=== PATIENT | male | born 1955 | race Caucasian/White ===

== ENCOUNTER → 2017-08-23 | Outpatient (CLI) | payer OTHER ==
[2016-12-01 12:18] VITALS: BMI 40.2
[~2017-08-23] MED LIST: ALB6.7R INH; ALBU8.5H12 IH; BUPR-126 PO; CEPH500C24 PO; DOCU-416 PO; DOXY-179 PO; FENT-15 TD; GABA-547 PO; IBUP600T22 PO; LOR5/325 PO; MUPI15CR2; NADO40TA19 PO; NAPR220C12 PO; OMEP-125 PO; ONDA-2 PO; ONDA4TAB97 PO; OXYC-865 PO; PANT40TA65 PO; PNEI IJ; TRAM-420 PO; VANC1VIA14 IV
[2017-08-23 12:51] LABS: PLATELET COUNT, AUTOMATED 65 K/uL (150-450)
[2017-08-23 13:09] LABS: INR 1.5
[2017-08-23 13:30] LABS: LDL CHOLESTEROL 41 mg/dl
== END ==
LOC: LAB 12:15
PROVIDERS: ATTEND Emergency Medicine
DX: K74.69 Other cirrhosis of liver (principal)
CPT/HCPCS: 36415; 82040; 82105; 82247; 82310; 82374; 82435; 82465; 82565; 82947; 83718; 84075; 84132; 84153; 84155; 84295; 84443; 84450; 84460; 84478; 84520; 85025; 85610; 85730; 86140

== ENCOUNTER → 2017-12-27 | Outpatient (CLI) | payer OTHER ==
[2016-12-01 12:18] VITALS: BMI 40.2
[~2017-12-27] MED LIST changes: +SULF-198 PO
[2017-12-27 11:20] LABS: PLATELET COUNT, AUTOMATED 54 K/uL (150-450)
--- NOTE | 2017-12-27 11:26 | RADIOLOGY IMAGING REPORT ---
FACILITY: [facility] [place] PATIENT NAME: Kamar Monsalve : 1955 MR: [id number] V: [id number] EXAM DATE: ORDERING PHYSICIAN: MARGIE DODGE TECHNOLOGIST: Location: [facility] Patient: Kamar Monsalve : 1955 Visit/Account:[id number] Date of Sevice: 12/27/2017 VENOUS DOPP LOW RIGHT EXTREMIT HISTORY: edema RLE ADDITIONAL HISTORY: None. COMPARISON: Comparison ultrasound 11/29/2016 which was negative for DVT FINDINGS: Grayscale, duplex and color Doppler interrogation of the right lower extremity deep veins from common femoral vein to proximal calf was completed. Common femoral vein - Negative. Femoral vein - Negative. Deep femoral vein - Negative. Popliteal vein - Negative. Visualized deep calf veins - Negative. Popliteal fossa: Negative. Greater saphenous vein in the proximal thigh: Negative. Soft tissues-unremarkable. No sonographic evidence of edema. IMPRESSION: Normal study. No evidence of DVT in the right leg. Results were called to MARGIE DODGE at 12/27/2017 11:19 AM. Report Dictated By: Adarsh Petersen MD at 12/27/2017 11:19 AM Report E-Signed By: Adrash Petersen MD at 12/27/2017 11:22 AM WSN:[id number]
[2017-12-27 12:12] LABS: INR 1.51
== END ==
LOC: LAB 10:01
PROVIDERS: ATTEND Internal Medicine
DX: K74.60 Unspecified cirrhosis of liver (principal); R60.9 Edema, unspecified; D61.818 Other pancytopenia; L08.9 Local infection of the skin and subcutaneous tissue, unspecified
CPT/HCPCS: 36415; 82040; 82247; 82310; 82374; 82435; 82565; 82947; 84075; 84132; 84155; 84295; 84450; 84460; 84520; 85025; 85610

== ENCOUNTER → 2018-01-30 | Outpatient (CLI) | payer OTHER ==
[2016-12-01 12:18] VITALS: BMI 40.2
[2018-01-30 16:01] LABS: PLATELET COUNT, AUTOMATED 59 K/uL (150-450)
--- NOTE | 2018-01-30 16:01 | RADIOLOGY IMAGING REPORT ---
FACILITY: [facility] [place] PATIENT NAME: Kamar Monsalve : 1955 MR: [id number] V: [id number] EXAM DATE: ORDERING PHYSICIAN: MARGIE DODGE TECHNOLOGIST: Location: [facility] Patient: Kamar Monsalve : 1955 Visit/Account:[id number] Date of Sevice: 01/30/2018 Exam type: VENOUS DOPP LOW LEFT EXTREMITY History: Edema of left leg, portal hypertension Comparison: None. Findings: Left lower extremity veins were imaged including the left common femoral vein, greater saphenous vein , superficial femoral vein, popliteal vein, posterior tibial vein, peroneal vein and anterior tibial vein revealing no evidence of trauma thrombi. The veins were compressible and demonstrated augmentat ion. There is soft tissue edema seen in the left calf distally. Incidentally noted are fatty replac ed lymph nodes in the left groin largest measuring 4.4 x 1.3 x 1.9 cm IMPRESSION: 1. No sonographic evidence of DVT involving the left lower extremity veins Report Dictated By: Dorota Dorsey MD at 01/30/2018 3:53 PM Report E-Signed By: Dorota Dorsey MD at 01/30/2018 3:55 PM GLORIAN:KELLY
== END ==
LOC: RAD 14:08
PROVIDERS: ATTEND Internal Medicine
DX: D61.818 Other pancytopenia (principal); L03.116 Cellulitis of left lower limb; R60.0 Localized edema
CPT/HCPCS: 36415; 82040; 82247; 82310; 82374; 82435; 82565; 82947; 84075; 84132; 84155; 84295; 84443; 84450; 84460; 84520; 85025; 86140

== ENCOUNTER → 2018-03-13 | Outpatient (CLI) | payer OTHER ==
[2016-12-01 12:18] VITALS: BMI 40.2
[~2018-03-13] MED LIST changes: +OXYC5TAB38 PO; +SPIR50TA33 PO
[2018-03-13 12:12] LABS: PLATELET COUNT, AUTOMATED 79 K/uL (150-450)
== END ==
LOC: LAB 11:56
PROVIDERS: ATTEND Internal Medicine
DX: K74.60 Unspecified cirrhosis of liver (principal); R60.0 Localized edema; D61.818 Other pancytopenia
CPT/HCPCS: 36415; 82040; 82247; 82310; 82374; 82435; 82565; 82947; 84075; 84132; 84155; 84295; 84443; 84450; 84460; 84520; 85025

== ENCOUNTER 2018-04-29 22:51 | Inpatient (IN) | payer OTHER ==
[~2018-04-29] VITALS: Ht 193 cm; Wt 138.3 kg
[2018-04-29] MEDS ORDERED: ACETAMINOPHEN 325 MG TAB PO ONE (23:00)
[2018-04-29] MEDS ORDERED: PIPERACILLIN/TAZO*3.375GM VIAL 3.375 GM in NS(*) 0.9% 100 ML ADDVANT BAG 100 ML IVPB ONE (23:00)
[2018-04-29] MEDS ORDERED: NS 0.9% IV ONE (23:00)
[2018-04-29] MEDS ORDERED: IOPAMIDOL 76% 75 ML INFUS BTL 75 ML ONE (23:13)
[2018-04-29 23:14] LABS: PLATELET COUNT, AUTOMATED 54 K/uL (150-450)
[2018-04-29] MEDS ORDERED: VANCOMYCIN 1 GM ADDVIAL 1 GM in NS(*) 0.9% 250 ML ADDVAN BAG 250 ML IVPB ONE (23:20)
--- NOTE | 2018-04-29 23:21 | ER Report ---
History and Physical Time Seen By MD: 23:20 Hx. of Stated Complaint: PT CALLED IN SICK TODAY VIA REPORT; STATES THAT PATIENT HAS NOT BEEN "BEEN HIMSELF TODAY" ABOUT AN HOUR AND A HALF AGO PATIENT STARTED EXPERIENCING ALTERED LOC AND STATES NAUSA AND "FEELING HOT" HPI/ROS CHIEF COMPLAINT: Altered mental status, lethargy, fever HISTORY OF PRESENT ILLNESS: Patient is a 8-year-old male here with complaints of fever, lethargy, altered mental status for the past several hours. Patient's reports that he became increasingly more altered over the course of the past several hours and became hot to the touch. Patient has a history of right knee infection and several skin sores which are suspected to be infected with staph. Patient also complained of abdominal pain, cough. Patient was febrile at time of evaluation, confused with no clear focal neurological deficits or muscle weakness. Per the 's report, the patient had confused speech, had nonsensical thought process causing her to call EMS. Patient also has a history significant for liver cirrhosis, on nadolol. Of note, patient is on fentanyl p atch as well as tramadol. REVIEW OF SYSTEMS: Unable to obtain due to patient's mental status Allergies: Coded Allergies: horse dander (Verified Allergy, Unknown, 11/29/16) morphine (Unverified Allergy, Unknown, NAUSEA/VOMITING, 11/29/16) Home Meds Active Scripts Tramadol Hcl (TRAMADOL HCL) 50 Mg Tablet, 50 MG PO BID PRN for pain, #60 TAB 3 R efills Prov:MARGIE DODGE MD 04/08/18 Fentanyl 12 Mcg Patch (DURAGESIC 12 MCG PATCH) 1 Each Patch.td72, 1 EACH TD Q72H, #10 PATCH.72H on or after 06/08/2018 Prov:MARGIE DODGE MD 04/08/18 Eplerenone (EPLERENONE) 50 Mg Tablet, 50 MG PO DIRECTED, #60 TAB 3 Refills half tablet daily x 1 week 1 tablet daily x 1 week than 1 tablet bid x 1 week Prov:MARGIE DODGE MD 04/08/18 Gabapentin (GABAPENTIN) 100 Mg Capsule, 1-3 TAB PO BID PRN for rls, #60 CAPSULE 3 Refills Prov:MARGIE DODGE MD 04/08/18 Nadolol (NADOLOL) 40 Mg Tablet, 40 MG PO QDAY, #90 TAB 3 Refills Prov:MARGIE DODGE MD 09/24/17 Mupirocin Abhishek 2% Cream (MUPIROCIN 2% CREAM) 15 Gm Cream..g., 0 NA BID, #15 GM Prov:MARGIE DODGE MD 05/27/17 Pantoprazole Sodium (PANTOPRAZOLE SODIUM) 40 Mg Tablet.dr, 40 MG PO QDAY, #30 TAB.SR 3 Refills Prov:MARGIE DODGE MD 03/06/17 Ondansetron Hcl (ONDANSETRON HCL) 4 Mg Tablet, 4 MG PO TID PRN for NAUSEA/VOMITING, #30 TAB 1 Refill Prov:MARGIE DODGE MD 01/15/17 Reported Medications Albuterol Sulfate (PROVENTIL HFA) Unknown Strength Inh, 1-2 PUFF INH PRN, INH 05/28/16 Reviewed Nurses Notes: Yes Old Medical Records Reviewed: Yes Hx Smoking: No Smoking Status: Never Smoker Hx Substance Use Disorder: No Hx Alcohol Use: No Constitutional Vital Sign - Last 24 Hours 04/29/18 04/29/18 04/29/18 04/29/18 22:52 22:58 23:00 23:21 Temp 102.3 Pulse 75 72 Resp 22 34 B/P (MAP) 120/52 (74) 120/52 107/55 (72) Pulse Ox 93 92 O2 Delivery Room Air 04/29/18 04/29/18 04/30/18 04/30/18 23:30 23:51 00:13 00:21 Pulse ??? 76 Resp 24 B/P (MAP) 105/60 (75) 116/43 (67) Pulse Ox 95 04/30/18 04/30/18 04/30/18 04/30/18 00:30 00:35 01:00 01:02 Temp 102.4 Pulse 78 Resp 29 B/P (MAP) 115/54 (74) 106/57 (73) Pulse Ox 88 04/30/18 04/30/18 04/30/18 04/30/18 01:30 01:35 01:56 02:01 Pulse 75 72 73 Resp 22 18 15 B/P (MAP) 112/58 (76) Pulse Ox 98 97 97 04/30/18 04/30/18 02:30 02:31 Pulse 70 Resp 16 B/P (MAP) 95/53 (67) Pulse Ox 97 Intake and Output 04/29/18 04/29/18 04/30/18 15:00 23:00 07:00 Intake Total 1100 ml Balance 1100 ml Physical Exam General Appearance: The patient is alert, has no immediate need for airway protection and no signs of toxicity. Confused, altered mental status Eyes: Pupils equal and round no pallor or injection. ENT, Mouth: Mucous membranes are moist. Respiratory: There are no retractions, lungs are clear to auscultation. Cardiovascular: Regular rate and rhythm. Gastrointestinal: Abdomen is soft and non tender, no masses, bowel sounds normal. Neurological: Confused, altered, no focal neurological deficits or motor weakness or cranial nerve deficit Skin: Warm and dry, + lower extremity skin lesions. Musculoskeletal: Neck is supple non tender. Extremities: + RLE swelling, warm to the touch DIFFERENTIAL DIAGNOSIS: After history and physical exam differential diagnosis was considered for adult fever including but not limited to viral syndromes including influenza, urinary tract infection, pneumonia and sepsis, skin infection Medical Decision Making Data Points Result Diagram: 04/29/18203904/29/182039 Laboratory Hematology Test 04/29/18 20:40 04/30/18 00:48 04/30/18 01:36 04/30/18 01:40 Red Blood Count 4.39 M/uL (4.00-5.60) Mean Corpuscular Volume 95.9 fL (80.0-96.0) Mean Corpuscular Hemoglobin 33.3 pg (26.0-33.0) Mean Corpuscular Hemoglobin Concent 34.7 g/dL (32.0-36.0) Red Cell Distribution Width 14.9 % (11.5-14.5) Mean Platelet Volume 9.4 fL (7.2-11.1) Neutrophils (%) (Auto) 79.1 % (39.4-72.5) Lymphocytes (%) (Auto) 11.4 % (17.6-49.6) Monocytes (%) (Auto) 8.3 % (4.1-12.4) Eosinophils (%) (Auto) 1.1 % (0.4-6.7) Basophils (%) (Auto) 0.1 % (0.3-1.4) Nucleated RBC Relative Count (auto) 0.1 /100WBC Neutrophils # (Auto) 4.1 K/uL (2.0-7.4) Lymphocytes # (Auto) 0.6 K/uL (1.3-3.6) Monocytes # (Auto) 0.4 K/uL (0.3-1.0) Eosinophils # (Auto) 0.1 K/uL (0.0-0.5) Basophils # (Auto) 0.0 K/uL (0.0-0.1) Nucleated RBC Absolute Count (auto) 0.00 K/uL Peripheral Blood Smear Yes Y/N Prothrombin Time 17.9 seconds (12.0-14.4) Prothromb Time International Ratio 1.46 Activated Partial Thromboplast Time 40 seconds (23-35) Sodium Level 137 mmol/L (137-145) Potassium Level 4.0 mmol/L (3.5-5.0) Chloride Level 102 mmol/L (98-107) Carbon Dioxide Level 26 mmol/L (22-30) Blood Urea Nitrogen 13 mg/dl (9-21) Creatinine 1.00 mg/dl (0.66-1.25) Glomerular Filtration Rate Calc > 60.0 Random Glucose 101 mg/dl (75-110) Lactate 2.0 mmol/L (0.7-2.1) Calcium Level 8.9 mg/dl (8.4-10.2) Total Bilirubin 2.3 mg/dl (0.2-1.3) Aspartate Amino Transf (AST/SGOT) 55 U/L (0-35) Alanine Aminotransferase (ALT/SGPT) 40 U/L (0-56) Alkaline Phosphatase 56 U/L (0-126) Total Protein 7.8 g/dl (6.3-8.2) Albumin 3.6 g/dl (3.5-5.0) Urine Color Yellow Urine Clarity Clear Urine pH 8.0 pH (4.8-9.5) Urine Specific [place] 1.051 Urine Protein Negative mg/dL (NEGATIVE) Urine Glucose (UA) Negative mg/dL (NEGATIVE) Urine Ketones Negative mg/dL (NEGATIVE) Urine Blood Negative (NEGATIVE) Urine Nitrite Negative (NEGATIVE) Urine Bilirubin Negative (NEGATIVE) Urine Urobilinogen 2.0 mg/dL (0.2-1.9) Urine Leukocyte Esterase Negative (NEGATIVE) Urine RBC <1 /HPF (0-2/HPF) Urine WBC None /HPF (0-5/HPF) Urine Squamous Epithelial Cells Few /LPF (NONE-FEW) Urine Bacteria Negative /HPF (NONE-FEW) Urine Mucus None /HPF (NONE-FEW) Ammonia 36 UMOL/L (9-33) Serum Alcohol < 10 mg/dl Chemistry Test 04/29/18 20:40 04/30/18 00:48 04/30/18 01:36 04/30/18 01:40 White Blood Count 5.1 k/uL (4.5-11.0) Red Blood Count 4.39 M/uL (4.00-5.60) Hemoglobin 14.6 g/dL (14.0-18.0) Hematocrit 42.1 % (42.0-52.0) Mean Corpuscular Volume 95.9 fL (80.0-96.0) Mean Corpuscular Hemoglobin 33.3 pg (26.0-33.0) Mean Corpuscular Hemoglobin Concent 34.7 g/dL (32.0-36.0) Red Cell Distribution Width 14.9 % (11.5-14.5) Platelet Count 54 K/uL (150-450) Mean Platelet Volume 9.4 fL (7.2-11.1) Neutrophils (%) (Auto) 79.1 % (39.4-72.5) Lymphocytes (%) (Auto) 11.4 % (17.6-49.6) Monocytes (%) (Auto) 8.3 % (4.1-12.4) Eosinophils (%) (Auto) 1.1 % (0.4-6.7) Basophils (%) (Auto) 0.1 % (0.3-1.4) Nucleated RBC Relative Count (auto) 0.1 /100WBC Neutrophils # (Auto) 4.1 K/uL (2.0-7.4) Lymphocytes # (Auto) 0.6 K/uL (1.3-3.6) Monocytes # (Auto) 0.4 K/uL (0.3-1.0) Eosinophils # (Auto) 0.1 K/uL (0.0-0.5) Basophils # (Auto) 0.0 K/uL (0.0-0.1) Nucleated RBC Absolute Count (auto) 0.00 K/uL Peripheral Blood Smear Yes Y/N Prothrombin Time 17.9 seconds (12.0-14.4) Prothromb Time International Ratio 1.46 Activated Partial Thromboplast Time 40 seconds (23-35) Glomerular Filtration Rate Calc > 60.0 Lactate 2.0 mmol/L (0.7-2.1) Calcium Level 8.9 mg/dl (8.4-10.2) Total Bilirubin 2.3 mg/dl (0.2-1.3) Aspartate Amino Transf (AST/SGOT) 55 U/L (0-35) Alanine Aminotransferase (ALT/SGPT) 40 U/L (0-56) Alkaline Phosphatase 56 U/L (0-126) Total Protein 7.8 g/dl (6.3-8.2) Albumin 3.6 g/dl (3.5-5.0) Urine Color Yellow Urine Clarity Clear Urine pH 8.0 pH (4.8-9.5) Urine Specific [place] 1.051 Urine Protein Negative mg/dL (NEGATIVE) Urine Glucose (UA) Negative mg/dL (NEGATIVE) Urine Ketones Negative mg/dL (NEGATIVE) Urine Blood Negative (NEGATIVE) Urine Nitrite Negative (NEGATIVE) Urine Bilirubin Negative (NEGATIVE) Urine Urobilinogen 2.0 mg/dL (0.2-1.9) Urine Leukocyte Esterase Negative (NEGATIVE) Urine RBC <1 /HPF (0-2/HPF) Urine WBC None /HPF (0-5/HPF) Urine Squamous Epithelial Cells Few /LPF (NONE-FEW) Urine Bacteria Negative /HPF (NONE-FEW) Urine Mucus None /HPF (NONE-FEW) Ammonia 36 UMOL/L (9-33) Serum Alcohol < 10 mg/dl Coagulation Test 04/29/18 20:40 Prothrombin Time 17.9 seconds Prothromb Time International Ratio 1.46 Activated Partial Thromboplast Time 40 seconds Toxicology Test 04/30/18 01:40 Serum Alcohol < 10 mg/dl Urinalysis Test 04/30/18 00:48 Urine Color Yellow Urine Clarity Clear Urine pH 8.0 pH (4.8-9.5) Urine Specific [place] 1.051 Urine Protein Negative mg/dL (NEGATIVE) Urine Glucose (UA) Negative mg/dL (NEGATIVE) Urine Ketones Negative mg/dL (NEGATIVE) Urine Blood Negative (NEGATIVE) Urine Nitrite Negative (NEGATIVE) Urine Bilirubin Negative (NEGATIVE) Urine Urobilinogen 2.0 mg/dL (0.2-1.9) Urine Leukocyte Esterase Negative (NEGATIVE) Urine RBC <1 /HPF (0-2/HPF) Urine WBC None /HPF (0-5/HPF) Urine Squamous Epithelial Cells Few /LPF (NONE-FEW) Urine Bacteria Negative /HPF (NONE-FEW) Urine Mucus None /HPF (NONE-FEW) EKG/Imaging Monitor Interpretation: Normal Sinus Rhythm Imaging COMPUTED TOMOGRAPHY ABDOMEN AND PELVIS WITH INTRAVENOUS CONTRAST DATE OF EXAM: 04/29/2018 10:56 PM INDICATION: Altered mental status, sepsis. History of cirrhosis. COMPARISON: CT abdomen 03/14/2017. TECHNIQUE: Contrast enhanced abdomen and pelvis CT performed during the injection of 75 ml of Isovue 370. Sagittal and coronal reconstructions were performed. One of the following dose optimization techniques was utilized in the performance of this exam: Automated exposure control; adjustment of the mA and/or kV according to the patient's size; or use of an iterative reconstruction technique. Specific details can be referenced in the facility's radiology CT exam operational policy. FINDINGS: Examination limited by respiratory motion artifact and artifact from the patient's arms. Lung bases: Minimal atelectasis. Liver and hepatic vasculature: Hypertrophy of the caudate lobe consistent with cirrhosis as previously described. Prominent venous collaterals in the upper abdomen. No well-demonstrated focal lesion or acute abnormality. Gallbladder and bile ducts: Gallbladder is partially distended and 1 suboptimally evaluated due to motion artifact. Spleen: At least moderate splenomegaly similar to prior. Pancreas: Nonfocal. Adrenals: Normal. Kidneys, ureters and bladder: 2 exophytic cysts at the superior pole of the right kidney. Probable cyst at the inferior pole of the left kidney as well. No acute abnormality or suspicious lesion. Retroperitoneum and aorta: Normal caliber aorta. No retroperitoneal adenopathy. GI tract, mesentery and peritoneum: No evidence of obstruction. No pneumatosis or pneumoperitoneum. Moderate to large amount of stool in the colon. Mild mesenteric edema may be related to portal hypertension. No significant ascites. Normal appendix. An umbilical hernia contains fat and a small loop of small bowel with no evidence of complication. Additional supraumbilical hernia contains omental fat. Prostate and seminal vesicles: Normal. Bones and soft tissues: There are enlarged right inguinal lymph nodes. An example node on image 180 series 2 measures 3.3 x 2.1 cm. No suspicious bone lesion. Marked bilateral gynecomastia. Umbilical and supraumbilical hernias as above. IMPRESSION: Examination limited by motion artifact. P CHEST 04/29/2018 10:56 PM. INDICATION: sepsis COMPARISON: None. FINDINGS: Lungs are well-expanded. There is no consolidation. No pleural effusion or pneumothorax. Heart size is likely normal. IMPRESSION: No acute abnormality. 1. Cirrhotic liver with evidence of portal hypertension including upper abdominal venous collaterals, splenomegaly, and mild mesenteric edema. No s ignificant volume of ascites. 2. Moderate to large amount of stool in the colon may indicate constipation. 3. Right inguinal adenopathy. Correlate with exam and any evidence of right lower extremity inflammation or infection. These would likely be amenable to percutaneous biopsy if there is any suspicion of malignancy. 4. Additional nonacute findings as described. CT Head without contrast Indication: Altered mental status. Comparison: None available. Technique: Axial CT images were obtained through the brain from the skull base to the vertex without administration of IV contrast. One of the following dose optimization techniques was utilized in the performance of this exam: Automated exposure control; adjustment of the mA and/or kV according to the patient's size; or use of an iterative reconstruction technique. Specific details can be referenced in the facility's radiology CT exam operational policy. Findings: No midline shift. No acute intracranial hemorrhage or acute territorial infarction. Region of CSF attenuation in the anterior inferior aspect of the left middle cranial fossa on the left measures 5.2 x 2.3 x 2.4 cm and likely represents an arachnoid cyst. Skull is nonacute. Globes and orbits are grossly normal. The visualized paranasal sinuses and mastoid air spaces are clear. IMPRESSION: 1. No acute intracranial abnormality. 2. Probable left middle cranial fossa arachnoid cyst, likely incidental. ED Course/Re-evaluation ED Course Patient is a 62-year-old male here with altered mental status, fever, right lower extremity swelling with warmth to the touch, reports of abdominal pain with no obvious peritoneal signs or tenderness on exam at time of arrival. Patient was noted to have a temperature 102.7F so a sepsis workup was initiated with blood cultures, 3 L fluid bolus, vancomycin and Zosyn administration. CT imaging of the head, abdomen and chest x-ray showed no acute findings aside for confirmation of liver cirrhosis, right inguinal lymphadenopathy consistent with infection of right lower extremity which are reportedly has been recurrent per patient's with staff. Ammonia was normal. Patient was also noted to have a fentanyl patch and is being treated with tramadol for analgesia. Patient's temperature normalized after treatment and Toradol administration patient's mental status began to improve. I discussed the patient with Dr. Mejía still with the hospitalist on-call who accepted the patient to his service. Patient remained stable throughout course in the emergency department. Decision to Disposition Date: Apr 30, 2018 Decision to Disposition Time: 00:03 Depart Departure Latest Vital Signs Vital Signs Date Time Temp Pulse Resp B/P (MAP) Pulse Ox O2 Delivery O2 Flow Rate FiO2 04/30/18 02:31 70 16 97 04/30/18 02:30 95/53 (67) 04/30/18 01:02 102.4 04/29/18 22:58 Room Air Impression: Primary Impression: Altered mental status Additional Impressions: Cirrhosis Skin infection Condition: Improved Disposition: Admitted from ER Referrals: MARGIE DODGE MD (PCP) Problem Qualifiers RUDOLPH CRUMP DO Apr 29, 2018 23:21
[2018-04-29 23:25] LABS: INR 1.46
[2018-04-30] VITALS (12 sets, daily range): BP systolic 87–117; BP diastolic 42–74; Ht 193 cm; Wt 138.3 kg
--- NOTE | 2018-04-30 00:31 | RADIOLOGY IMAGING REPORT ---
FACILITY: [facility] PATIENT NAME: Kamar Monsalve : 1955 MR: [id number] V: [id number] EXAM DATE: ORDERING PHYSICIAN: RUDOLPH CRUMP TECHNOLOGIST: Location: [facility] Patient: Kamar Monsalve : 1955 Visit/Account:[id number] Date of Sevice: 04/29/2018 AP CHEST 04/29/2018 10:56 PM. INDICATION: sepsis COMPARISON: None. FINDINGS: Lungs are well-expanded. There is no consolidation. No pleural effusion or pneumothorax. Heart size i s likely normal. IMPRESSION: No acute abnormality. Report Dictated By: Vinod Montiel MD at 04/30/2018 12:25 AM Report E-Signed By: Vinod Montiel MD at 04/30/2018 12:27 AM WSN:[id number]
--- NOTE | 2018-04-30 00:39 | RADIOLOGY IMAGING REPORT ---
FACILITY: [facility] [place] PATIENT NAME: Kamar Monsalve : 1955 MR: [id number] V: [id number] EXAM DATE: ORDERING PHYSICIAN: RUDOLPH CRUMP TECHNOLOGIST: Location: [facility] Patient: Kamar Monsalve : 1955 Visit/Account:[id number] Date of Sevice: 04/29/2018 CT Head without contrast Indication: Altered mental status. Comparison: None available. Technique: Axial CT images were obtained through the brain from the skull base to the vertex without administration of IV contrast. One of the following dose optimization techniques was utilized in th e performance of this exam: Automated exposure control; adjustment of the mA and/or kV according to t he patient's size; or use of an iterative reconstruction technique. Specific details can be referen benitez in the facility's radiology CT exam operational policy. Findings: No midline shift. No acute intracranial hemorrhage or acute territorial infarction. Region of CSF attenuation in the anterior inferior aspect of the left middle cranial fossa on the lef t measures 5.2 x 2.3 x 2.4 cm and likely represents an arachnoid cyst. Skull is nonacute. Globes and orbits are grossly normal. The visualized paranasal sinuses and mastoid air spaces are clear. IMPRESSION: 1. No acute intracranial abnormality. 2. Probable left middle cranial fossa arachnoid cyst, likely incidental. Report Dictated By: Vinod Montiel MD at 04/30/2018 12:27 AM Report E-Signed By: Vinod Montiel MD at 04/30/2018 12:35 AM WSN:[id number]
--- NOTE | 2018-04-30 00:54 | RADIOLOGY IMAGING REPORT ---
FACILITY: [facility] PATIENT NAME: Kamar Monsalve : 1955 MR: [id number] V: [id number] EXAM DATE: [id number] ORDERING PHYSICIAN: RUDOLPH CRUMP TECHNOLOGIST: Location: [facility] [place] Patient: Kamar Monsalve : 1955 Visit/Account:[id number] Date of Sevice: 04/29/2018 COMPUTED TOMOGRAPHY ABDOMEN AND PELVIS WITH INTRAVENOUS CONTRAST DATE OF EXAM: 04/29/2018 10:56 PM INDICATION: Altered mental status, sepsis. History of cirrhosis. COMPARISON: CT abdomen 03/14/2017. TECHNIQUE: Contrast enhanced abdomen and pelvis CT performed during the injection of 75 ml of Isovue 370. Sagittal and coronal reconstructions were performed. One of the following dose optimization te chniques was utilized in the performance of this exam: Automated exposure control; adjustment of the mA and/or kV according to the patient's size; or use of an iterative reconstruction technique. Spec [facility] details can be referenced in the facility's radiology CT exam operational policy. FINDINGS: Examination limited by respiratory motion artifact and artifact from the patient's arms. Lung bases: Minimal atelectasis. Liver and hepatic vasculature: Hypertrophy of the caudate lobe consistent with cirrhosis as previous ly described. Prominent venous collaterals in the upper abdomen. No well-demonstrated focal lesion or acute abnormality. Gallbladder and bile ducts: Gallbladder is partially distended and 1 suboptimally evaluated due to m otion artifact. Spleen: At least moderate splenomegaly similar to prior. Pancreas: Nonfocal. Adrenals: Normal. Kidneys, ureters and bladder: 2 exophytic cysts at the superior pole of the right kidney. Probable cyst at the inferior pole of the left kidney as well. No acute abnormality or suspicious lesion. Retroperitoneum and aorta: Normal caliber aorta. No retroperitoneal adenopathy. GI tract, mesentery and peritoneum: No evidence of obstruction. No pneumatosis or pneumoperitoneum. Moderate to large amount of stool in the colon. Mild mesenteric edema may be related to portal hyp ertension. No significant ascites. Normal appendix. An umbilical hernia contains fat and a small l oop of small bowel with no evidence of complication. Additional supraumbilical hernia contains oment al fat. Prostate and seminal vesicles: Normal. Bones and soft tissues: There are enlarged right inguinal lymph nodes. An example node on image 180 series 2 measures 3.3 x 2.1 cm. No suspicious bone lesion. Marked bilateral gynecomastia. Umbilic al and supraumbilical hernias as above. IMPRESSION: Examination limited by motion artifact. 1. Cirrhotic liver with evidence of portal hypertension including upper abdominal venous collaterals , splenomegaly, and mild mesenteric edema. No significant volume of ascites. 2. Moderate to large amount of stool in the colon may indicate constipation. 3. Right inguinal adenopathy. Correlate with exam and any evidence of right lower extremity inflamm ation or infection. These would likely be amenable to percutaneous biopsy if there is any suspicion of malignancy. 4. Additional nonacute findings as described. Report Dictated By: Vinod Montiel MD at 04/30/2018 12:38 AM Report E-Signed By: Vinod Montiel MD at 04/30/2018 12:51 AM WSN:[id number]
[2018-04-30] MEDS ORDERED: KETOROLAC 30 MG/ML VIAL IVP ONE (01:10)
[2018-04-30] MEDS ORDERED: VANCOMYCIN 1 GM ADDVIAL ONE (02:13)
[2018-04-30] MEDS ORDERED: NS(*) 0.9% 250 ML BAG 250 ML ONE (02:14)
[2018-04-30] MEDS ORDERED: FLUSH 10 ML SYR IVP PRN (05:10)
[2018-04-30] MEDS ORDERED: ONDANSETRON 4 MG/2 ML VIAL IVP PRN (05:10)
[2018-04-30] MEDS ORDERED: INFLUENZA VIRUS VAC 0.5ML SYR IM ONLY ONE (05:10)
[2018-04-30] MEDS ORDERED: VANCOMYCIN 1 GM ADDVIAL 1 GM in NS(*) 0.9% 250 ML ADDVAN BAG 250 ML IVPB ONE ×2 (05:10→06:00)
[2018-04-30] MEDS ORDERED: fentaNYL 12 MCG TDSY TD SCH (05:50)
[2018-04-30] MEDS ORDERED: ALBUTEROL 8 GM INHALER INH PRN ×2 (05:50→07:15)
--- NOTE | 2018-04-30 05:50 | History & Physical ---
History of Present Illness Chief Complaint AMS History of Present Illness 62M admitted for AMS and fever after presented him to ER with confused speech. PMHx significant for cirrhosis. Per patient became confused and was speaking incoherently for approx one hour which caused her to bring him in. In ER continued to display confusion but improved, on the floor after admission patient is coherent and able to recall unclear speech. Fever of 102.4 documented in ER and BCx were taken, Hx of MRSA infection of knee which may have been due to arthrocentesis November 2016. Follows with inside technical sales representative in [place] who has been unable to elucidate cause of cirrhosis. Hepatitis virology negative, pathology did not exclude hepatosteatosis but was suggestive of possible other cause. 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 (2) Pancytopenia Home Meds Active Scripts Tramadol Hcl (TRAMADOL HCL) 50 Mg Tablet, 50 MG PO BID PRN for pain, #60 TAB 3 Refills Prov:MARGIE DODGE MD 04/08/18 Fentanyl 12 Mcg Patch (DURAGESIC 12 MCG PATCH) 1 Each Patch.td72, 1 EACH TD Q72H, #10 PATCH.72H on or after 06/08/2018 Prov:MARGIE DODGE MD 04/08/18 Eplerenone (EPLERENONE) 50 Mg Tablet, 50 MG PO DIRECTED, #60 TAB 3 Refills half tablet daily x 1 week 1 tablet daily x 1 week than 1 tablet bid x 1 week Prov:MARGIE DODGE MD 04/08/18 Gabapentin (GABAPENTIN) 100 Mg Capsule, 1-3 TAB PO BID PRN for rls, #60 CAPSULE 3 Refills Prov:MARGIE DODGE MD 04/08/18 Nadolol (NADOLOL) 40 Mg Tablet, 40 MG PO QDAY, #90 TAB 3 Refills Prov:MARGIE DODGE MD 09/24/17 Mupirocin Abhishek 2% Cream (MUPIROCIN 2% CREAM) 15 Gm Cream..g., 0 NA BID, #15 GM Prov:MARGIE DODGE MD 05/27/17 Pantoprazole Sodium (PANTOPRAZOLE SODIUM) 40 Mg Tablet.dr, 40 MG PO QDAY, #30 TAB.SR 3 Refills Prov:MARGIE DODGE MD 03/06/17 Ondansetron Hcl (ONDANSETRON HCL) 4 Mg Tablet, 4 MG PO TID PRN for NAUSEA/VO MITING, #30 TAB 1 Refill Prov:MARGIE DODGE MD 01/15/17 Reported Medications Albuterol Sulfate (PROVENTIL HFA) Unknown Strength Inh, 1-2 PUFF INH PRN, INH 05/28/16 Allergies: Coded Allergies: horse dander (Verified Allergy, Unknown, 04/30/18) morphine (Verified Allergy, Unknown, NAUSEA/VOMITING, 04/30/18) Patient History: FH: [place] (myocardial infarction) FH: alcohol abuse FATHER, FH: depression MOTHER, Age:75 FH: heart disease FH: type 1 diabetes mellitus Scarlet fever Hx Smoking: No Smoking Status: Never Smoker Caffeine Intake: Coffee Caffeine/Cups Per Day: 2-3 Hx Alcohol Use: No Hx Substance Use Disorder: No Social Drug Use: Never Review of Systems All Systems Reviewed/Normal: Yes, Except as Noted Constitutional: Fever Musculoskeletal: Pain, Other (isolated ulcerations across b/l LE) Exam Vital Signs Vital Signs Date Time Temp Pulse Resp B/P (MAP) Pulse Ox O2 Delivery O2 Flow Rate FiO2 04/30/18 04:24 94 04/30/18 04:08 100.1 71 24 105/42 (63) 04/30/18 02:20 2.0 04/29/18 22:58 Room Air General Appearance: Alert, Awake, No Acute Distress Neuro: No Gross deficits Eyes: PERRLA ENT: Normal Neck: No Masses Cardiovascular: Normal Rhythm & Peripheral Pulses Respiratory: No Respiratory Distress GI: Abd Soft and Non-Tender Lymph: Cervical Nodes Benign Musculoskeletal: No Weakness/Pain Extremities: Soft and Non Tender, Warm, Pulses, Edema (mild bilateral) Integumentary: Other (scattered pururic lesions across b/l le. ) Psych: Alert & Oriented X3 Medical Decision Making Data Points Result Diagram: 04/29/18203904/29/182039 Assessment and Plan Problems: (1) Fever Assessment & Plan: Fever, altered mental status now resolved, no localizing signs infection. Has scattered purpura on legs which proceed to shallow ulcer ation, suspect this is vasculitic in nature and not infectious. WIll continue empiric Abx for the time with vancomycin and Primaxin but unclear what source of infection we would be treating. BCx pending, UA bland. (2) Purpura Assessment & Plan: Suspect vasculitis, these do not appear to be infectious. Possible related to thrombocytopenia, other consideration would have to be endocarditis. (3) Altered mental status Status: Resolved Assessment & Plan: Transient, resolved in ER after starting IV fluids and Abx. (4) Cirrhosis Status: Chronic Assessment & Plan: Unclear etiology, suspect some form autoimmune vs hepatoste atosis. Hepatitis viral serologies were negative in 2012 when diagnosed. (5) Thrombocytopenia Status: Chronic Assessment & Plan: Secondary to liver failure. (6) Chronic pain Assessment & Plan: On chronic Fentanyl patch and Tramadol, will continue but low threshold to stop if AMS recurs. Venous Thromboembolism Antithrombotics Is Pt On Any Antithrombotics?: No (purpuric rash with thrombocytopenia, SCD only.) Prophylaxis Tx Contraindicated Pharmacological Contraindicati: Low Platelet Count Exam Sepsis Risk: Severe Sepsis Risk LYNN VORA DO Apr 30, 2018 05:50
[2018-04-30] MEDS ORDERED: NS(*) 0.9% 500 ML BAG 500 ML ONE (06:09)
[2018-04-30] MEDS: traMADol 50 MG TAB PO PRN ×2 (06:24→21:55)
[2018-04-30] MEDS: IMIPENEM/CILASTA(*) 500MG VIAL 500 MG in NS(*) 0.9% 100 ML BAG 100 ML IVPB SCH ×4 (06:34→23:08)
[2018-04-30 06:57] LABS: PLATELET COUNT, AUTOMATED 37 K/uL (150-450)
[2018-04-30] MEDS ORDERED: NS(*) 0.9% 1000 ML BAG 1,000 ML IV PRN (08:20)
[2018-04-30] MEDS: GABAPENTIN 100 MG CAP PO SCH ×2 (08:29→21:11)
[2018-04-30] MEDS: PANTOPRAZOLE SOD 40 MG TABEC PO SCH (08:29)
[2018-04-30] MEDS ORDERED: ACETAMINOPHEN 500 MG TAB PO ONE (08:30)
[2018-04-30] MEDS ORDERED: LORazepam 2 MG/ML VIAL IVP ONE (08:30)
--- NOTE | 2018-04-30 08:34 | Hospitalist Progress Note ---
Subjective Progress Notes Subjective He is awake and alert. Still having some fever. He denies any specific complaints other than generalized weakness. Physical Exam Vital Signs Date Time Temp Pulse Resp B/P (MAP) Pulse Ox O2 Delivery O2 Flow Rate FiO2 04/30/18 07:47 101.9 69 18 105/74 (84) 92 Room Air 04/30/18 02:20 2.0 Intake and Output 04/30/18 07:00 Intake Total 4350 ml Balance 4350 ml IV Total 4350 ml General Appearance: Alert, Awake Neuro: No Gross deficits Cardiovascular: Regular Rate and Rhythm (no murmur noted) Respiratory: Clear to Auscultation GI: Other (Soft/BS present/no tenderness elicited) : No CVA Tenderness Extremities: Warm, Perfused Integumentary: Other (multiple pinpoint to small lesions over lower extremities predominantly, but several on distal upper extremities (spares palms and soles)) Psych: Alert & Oriented X3 Result Diagram: 04/30/18 0540 04/30/18 0540 Monitor Interpretation: Normal Sinus Rhythm Assessment and Plan Problems: (1) Fever Assessment & Plan: Altered mental status now resolved. Fevers persist. No localizing signs of infection. He has had scattered lesions on legs (and upper extremities to lesser extent) which proceed to shallow ulceration. I suspect these are vasculitic in nature and not infectious. Will continue empiric antibiotics for now with vancomycin and Primaxin until cultures are back. (2) Purpura Assessment & Plan: Suspect vasculitis, these do not appear to be infectious. Possibly related to thrombocytopenia. Autoimmune studies are pending. (3) Altered mental status Status: Resolved Assessment & Plan: Transient, resolved in ER. Will check MRI of brain today. (4) Cirrhosis Status: Chronic Assessment & Plan: Unclear etiology, suspect some form of autoimmune disorder vs. steatohepatitis. Hepatitis viral serologies were negative in 2013 when diagnosed. Question if all of the processes could be related to an autoimmune disorder. Await studies. Consider skin biopsy as well. (5) Thrombocytopenia Status: Chronic Assessment & Plan: Chronic. Possibly related to liver failure/disease. Could also be related to autoimmune process. (6) Chronic pain Assessment & Plan: On chronic Fentanyl patch and Tramadol, will continue, but low threshold to stop if AMS recurs. Exam Sepsis Risk: Severe Sepsis Risk KATIE SINGH MD Apr 30, 2018 08:34
[2018-04-30] MEDS ORDERED: GADOBENATE 529MG/1ML 15ML VIAL IVP ONE (10:31)
--- NOTE | 2018-04-30 11:43 | RADIOLOGY IMAGING REPORT ---
FACILITY: [facility] [place] PATIENT NAME: Kamar Monsalve : 1955 MR: [id number] V: [id number] EXAM DATE: ORDERING PHYSICIAN: KATIE SINGH TECHNOLOGIST: Location: [facility] - [place] Patient: Kamar Monsalve : 1955 Visit/Account:[id number] Date of Sevice: 04/30/2018 Study: MRI of the brain without and with gadolinium contrast. Indication: Change in mental status Comparison study: None Contrast used: 15 mL MultiHance gadolinium contrast Technique: Multiplanar MRI sequences were obtained through the brain before and after the administrat ion of gadolinium contrast. The examination demonstrates no evidence of acute intracranial hemorrhage. There is no evidence of hy drocephalus. There is a small arachnoid cyst present at the left temporal tip. There are scattered punctate areas of high T2-weighted signal present within the supratentorial brain parenchyma. These are nonspecific in appearance. There is no mass effect or contrast enhancement ass ociated with these findings. These findings are likely of no clinical significance. The pituitary gland is unremarkable in appearance. There is no evidence of abnormality of the pineal gland. A diffusion-weighted sequence was performed and demonstrates no evidence of active ischemia. There is no evidence of active infarct The orbits are unremarkable. The paranasal sinuses are unremarkable Following the administration of gadolinium contrast, there is no abnormal intracranial contrast enhan cement. IMPRESSION: No evidence of acute intracranial abnormality identified. Report Dictated By: Phuc Law at 04/30/2018 11:35 AM Report E-Signed By: Phuc Law at 04/30/2018 11:40 AM WSN:[email or web address]
[2018-04-30] MEDS: NS(*) 0.9% 1000 ML BAG 1,000 ML IV PRN (15:30)
[2018-04-30] MEDS ORDERED: VANCOMYCIN(*) 1 GM VIAL 1 GM, VANCOMYCIN HCL 0.750 GM VIAL 0.75 GM in NS(*) 0.9% 250 ML... IVPB SCH (20:00)
[2018-05-01 02:58] VITALS: BP 113/63
[2018-05-01] MEDS: NS(*) 0.9% 1000 ML BAG 1,000 ML IV PRN ×2 (04:57→23:22)
[2018-05-01] MEDS: IMIPENEM/CILASTA(*) 500MG VIAL 500 MG in NS(*) 0.9% 100 ML BAG 100 ML IVPB SCH ×3 (04:57→19:12)
[2018-05-01 06:23] LABS: PLATELET COUNT, AUTOMATED 37 K/uL (150-450)
[2018-05-01] MEDS ORDERED: VANCOMYCIN(*) 1 GM VIAL 2 GM in NS(*) 0.9% 250 ML BAG 250 ML IVPB ONE (08:45)
[2018-05-01] MEDS: PANTOPRAZOLE SOD 40 MG TABEC PO SCH (09:02)
[2018-05-01] MEDS: GABAPENTIN 100 MG CAP PO SCH ×2 (09:02→20:22)
[2018-05-01] MEDS: VANCOMYCIN(*) 1 GM VIAL 2 GM in NS(*) 0.9% 250 ML BAG 250 ML IVPB SCH ×3 (09:05→23:22)
[2018-05-01 09:11] VITALS: BP 118/65
--- NOTE | 2018-05-01 10:07 | Hospitalist Progress Note ---
Subjective Progress Notes Subjective This patient was admitted for fever and altered mental status. He had no acute events overnight. Patient Complains of: Cardiovascular: No: Chest Pain Respiratory: No: Shortness of Breath Physical Exam Vital Signs Date Time Temp Pulse Resp B/P (MAP) Pulse Ox O2 Delivery O2 Flow Rate FiO2 05/01/18 09:11 98.7 61 14 118/65 (82) 95 Room Air 04/30/18 02:20 2.0 Intake and Output 05/01/18 07:00 Intake Total 3746 ml Output Total 810 ml Balance 2936 ml Intake Oral 1210 ml IV Total 2536 ml Output Urine Total 810 ml # Bowel Movements 2 Cardiovascular: Regular Rate and Rhythm Respiratory: Clear to Auscultation Integumentary: Other (Multiple healing pustules about the legs and trunk.) Result Diagram: 05/01/18 0527 05/01/1827 Item Value Date Time Blood Culture - Preliminary Resulted 04/29/18 2343 Blood Peripheral Draw NO GROWTH AFTER 1 DAY, REINCUBATED Blood Culture - Preliminary Resulted 04/29/18 2329 Blood Peripheral Draw NO GROWTH AFTER 1 DAY, REINCUBATED Monitor Interpretation: Normal Sinus Rhythm Assessment and Plan Problems: (1) Fever Assessment & Plan: He did present with fever, and did have multiple elevated temperature overnight. His cultures have been negative to this point. His WBC is low. He is on empiric treatment with Primaxin and vancomycin. We have instructed nursing to repeat blood cultures if he has a recurrent fever. (2) Purpura Assessment & Plan: He does report multiple pustules about the legs and trunk. These are all currently in healing stage and do not appear to be infected. Autoimmune studies have either been negative or are still pending. Tissue biopsy may be indicated if these don't resolve. (3) Altered mental status Status: Resolved Assessment & Plan: A head CT and brain MRI were negative. His mental status is now at baseline. He was using a fentanyl patch prior to admission, and this has been removed. (4) Cirrhosis Status: Chronic Assessment & Plan: The etiology is unclear, suspect some form of autoimmune disorder vs. steatohepatitis. Hepatitis viral serologies were negative in 2013 when diagnosed. Question if all of the processes could be related to an autoimmune disorder. (5) Thrombocytopenia Status: Chronic Assessment & Plan: Chronic. Possibly related to liver failure/disease. Could also be related to autoimmune process. (6) Chronic pain Assessment & Plan: On chronic Fentanyl patch and Tramadol. Exam Sepsis Risk: No Definite Risk KARLEY FINLEY DO May 01, 2018 10:07
[2018-05-01 11:15] VITALS: BP 106/53
--- NOTE | 2018-05-01 15:14 | Antimicrobial Stewardship ---
Antimicrobial Time Out Antimicrobial Stewardship MD Service: Hospitalist Indications: Other (Fever of Unknown Origin) Antimicrobial Used Vancomycin + Primaxin Start Date: Apr 29, 2018 Culture Results: Yes (Blood Cx pending, Urine Culture pending) Eligible for PO Conversion Eligable for PO Conversion: No Reviewed with Provider Reviewed w/ Provider on Rounds: Yes Date Reviewed w/ Provider: Apr 30, 2018 Comments Comments 1. Unknown Fever of Origin - 62 yo M with a history of fever and altered mental status changes with a history of cirrhosis. PMH includes MRSA infection of the knee, treated with 6 weeks of IV Vancomycin followed by oral antibiotics. No identifiable source of infection at this time Temp 102.7 WBC 2.8 Plt 37 INR 1.46 Ammonia 36 Blood Cx pending NGTD Urine Cx pending NGTD CRP 2.4 1. Infection of unknown origin- Pt with fevers, leukopenia, thrombocytopenia, elevated INR, and a CRP of 2.4. On empiric antibiotics of Vancomycin and Primaxin. Continue present management with broad spectrum antibiotics based on unknown origin, still with fever. Repeat blood cultures indicated with temperature spike. Considering history of [place] knee infection from November 2017 growing MRSA, would be worried about potential seeding. Consider echo to rule out endocarditis possibly. Mental status changes resolved in the ED. Vancomycin changed to 2g IV Q8H, recheck trough tomorrow. Will follow and adjust as appropriate. Goal trough 15-20. Trough today was 9.64. Vera Gandhi, PharmD, BCOP VERA GANDHI Apr 30, 2018 14:04
--- NOTE | 2018-05-01 16:06 | Medical Nutrition Therapy ---
Nutrition Anthropometrics Height (Inches): 76.00 Height (Calculated Centimeters: 193.486953 Weight (Pounds): 305 Weight (Calculated Kilograms): 138.346 BMI: 37 Terrell Nutrition Score: Probably Inadequate Terrell Nutrition Risk Score: 19 Dietary Referral Nutrition Risk Factors: Nutrition Risk Comment: lack of appetite over past two years Physical Findings Physical Appearance: Obese BMI 30-39 Skin Appearance Skin Appearance: Edema Edema Location Modifier: Both Edema Location: Lower Extremity Type of Edema: Degree of Edema: 1+ Gastrointestinal Symptoms GI Symtoms: Appetite Changes Tube Present: Bowel Sounds: Recent Bowel Pattern: Stool Characteristics: Nutritional Diagnosis Nutritional Risk Acuity 2: Liver Cirrhosis Nutritional Risk Acuity 3: Nausea Past Medical History: Hx of cirrhosis- not due to alcohol, pancytopenia, MRSA infection to knee, and thrombocytopenia. Nutritional Acuity: 2-Moderate Energy Requirement: 2998 ([place], AF-1.3) Protein Requirement: 110 (.8g/kg) Fluid Requirement: 2998 (1ml/kcal) Nutrition Intervention: Cont diet as ordered, Encourage intake Nutrition Monitoring & Eval RD Patient Assessment Time: [address] Assessment Type: RD Assessment Patient Nutrition Acuity: 2-Moderate Follow Up Date: May 06, 2018 Nutritional Comment: 04/30. Admitted for fever, purpura, thrombocytopenia, and altered mental status. Pt has hx of cirrhosis of liver. Notable labs include: low WBC 2.8, RBC 3.67, Hgb 12.5, Hct 36.3, calcium 8, albumin 2.8, and total protein 6.2. Eleveated labs unclude AST 43 and c-reactive protein 2.4. Pt is experiencing edema in both ankles +1 and non pitting in BLE. Pt is 76in, 305lbs, and has an obese class 2 BMI of 37. Reported that pt has had lack of appetite the past two years. Will follow up with pt on this concern. MR 05/01. Spoke to pts , who noted pt has not been eating well at the facility. Reported pt is consuming 50-100% of small and regular sized meals on RICARDO. Pt cont to be treated for fever, purpura, thrombocytopenia. Notable labs inlcude: low WBC 1.9, RBC 3.58, Hgb 12.1, Hct 35.4, sodium 136, calcium 7.6, albumin 2.5, and total protein 5.8. AST is elevated at 38. Pt cont to have edema in ankle and feet. Cont to encourage intake. Will speak to pt tomorrow about low intake concern. MR MARREROERSMIN May 01, 2018 11:16
[2018-05-01] MEDS: traMADol 50 MG TAB PO PRN ×2 (16:09→22:26)
[2018-05-01 19:57] VITALS: BP 119/61
[2018-05-01 23:26] VITALS: BP 103/53
[2018-05-02] MEDS: IMIPENEM/CILASTA(*) 500MG VIAL 500 MG in NS(*) 0.9% 100 ML BAG 100 ML IVPB SCH ×4 (02:00→23:40)
[2018-05-02 07:23] VITALS: BP 99/64
[2018-05-02] MEDS: VANCOMYCIN(*) 1 GM VIAL 2 GM in NS(*) 0.9% 250 ML BAG 250 ML IVPB SCH ×2 (08:00→11:55)
[2018-05-02] MEDS: PANTOPRAZOLE SOD 40 MG TABEC PO SCH (09:08)
[2018-05-02] MEDS: GABAPENTIN 100 MG CAP PO SCH ×2 (09:08→21:00)
--- NOTE | 2018-05-02 10:25 | Medical Nutrition Therapy ---
Nutritional Diagnosis Nutritional Risk Acuity 2: Liver Cirrhosis Nutritional Risk Acuity 3: Nausea Past Medical History: Hx of cirrhosis- not due to alcohol, pancytopenia, MRSA infection to knee, and thrombocytopenia. Nutritional Acuity: 2-Moderate Nutrition Diagnosis: Inadequate Food Intake Nutrition Etiology: Change in Appetite Nutrition Problem/Etiology/Sym: Inadequate food intake, as related to change in appetite, as evidenced by report from pt of lack of appetite over past 2 years and low consumption of meals at facility. Energy Requirement: 2998 ([place], AF-1.3) Protein Requirement: 110 (.8g/kg) Fluid Requirement: 2998 (1ml/kcal) Nutrition Intervention: Cont diet as ordered, Encourage intake Nutrition Monitoring & Eval RD Patient Assessment Time: [address] Assessment Type: RD Assessment Patient Nutrition Acuity: 2-Moderate Follow Up Date: May 07, 2018 Nutritional Comment: 04/30. Admitted for fever, purpura, thrombocytopenia, and altered mental status. Pt has hx of cirrhosis of liver. Notable labs include: low WBC 2.8, RBC 3.67, Hgb 12.5, Hct 36.3, calcium 8, albumin 2.8, and total protein 6.2. Eleveated labs unclude AST 43 and c-reactive protein 2.4. Pt is experiencing edema in both ankles +1 and non pitting in BLE. Pt is 76in, 305lbs, and has an obese class 2 BMI of 37. Reported that pt has had lack of appetite the past two years. Will follow up with pt on this concern. MR 05/01. Spoke to pts , who noted pt has not been eating well at the facility. Reported pt is consuming 50-100% of small and regular sized meals on RICARDO. Pt cont to be treated for fever, purpura, thrombocytopenia. Notable labs inlcude: low WBC 1.9, RBC 3.58, Hgb 12.1, Hct 35.4, sodium 136, calcium 7.6, albumin 2.5, and total protein 5.8. AST is elevated at 38. Pt cont to have edema in ankle and feet. Cont to encourage intake. Will speak to pt tomorrow about low intake concern. MR 05/02. Spoke to pt today about [place] of lack of appetite for past 2 years. Pt reported he suffered MRSA infection 2 years ago and since then hasn't had the appetite like he used to. Pt also reports foods do not taste the same anymore. Will cont to monitor pt and provide adequate nutrition. MIN AVILA May 02, 2018 10:08
[2018-05-02] MEDS ORDERED: fentaNYL 12 MCG TDSY TD SCH ×2 (10:30→16:30)
--- NOTE | 2018-05-02 11:25 | Hospitalist Progress Note ---
Subjective Progress Notes Subjective Overall, feeling much better from admission. His last fever was the evening of 04/30. Physical Exam Vital Signs Date Time Temp Pulse Resp B/P (MAP) Pulse Ox O2 Delivery O2 Flow Rate FiO2 05/02/18 07:36 96 05/02/18 07:23 Room Air 05/02/18 07:23 98.5 62 16 99/64 (76) 04/30/18 02:20 2.0 Intake and Output 05/02/18 07:00 Intake Total 2267 ml Output Total 505 ml Balance 1762 ml Intake Oral 120 ml IV Total 2147 ml Output Urine Total 505 ml # Voids 4 # Bowel Movements 1 General Appearance: Alert, Awake, No Acute Distress Integumentary: Other (many healed or scabbed areas on legs and buttock. One on right buttock has mild erythema around it but not fluctuant. Erythema over the right calf with warmth and mild tenderness. Left calf is more swollen than the right.) Result Diagram: 05/01/18 0505/01/18526 Monitor Interpretation: Normal Sinus Rhythm Assessment and Plan Problems: (1) Fever Assessment & Plan: He presented with fever and AMS. His last fever was in the evening of 04/30. Overall, doing much better. His cultures have been negative to this point. No localizing signs of infection on admission. He has had scattered lesions on legs (and upper extremities to lesser extent) which proceed to shallow ulceration. Likely, these are vasculitic in nature and not infectious. He is followed by Dr. Willard for them. He has a h/o septic right knee and periodically gets warmth, swelling, pain, an erythema over the right calf. He has some erythema/warmth/tenderness now. Will get a venous Doppler and MRI of the knee and tib/fib. Will continue empiric antibiotics for now with vancomycin and Primaxin until cultures are back. (2) Purpura Assessment & Plan: He does report multiple pustules about the legs and trunk. These are all currently in healing stage and do not appear to be infected. Aut oimmune studies have either been negative or are still pending. Tissue biopsy may be indicated if these don't resolve. (3) Altered mental status Status: Resolved Assessment & Plan: A head CT and brain MRI were negative. His mental status is now at baseline. He was using a fentanyl patch prior to admission, which was removed. Will restart for his chronic right knee pain. (4) Pancytopenia Status: Acute Assessment & Plan: Chronic. Possibly related to liver failure/disease. Could also be related to autoimmune process. Will follow. (5) Cirrhosis Status: Chronic Assessment & Plan: The etiology is unclear, suspect some form of autoimmune disorder vs. steatohepatitis. Hepatitis viral serologies were negative in 2012 when diagnosed. Question if all of the processes could be related to an autoimm une disorder. (6) Chronic pain Assessment & Plan: On chronic Fentanyl patch and Tramadol. Exam Sepsis Risk: No Definite Risk SALEEM PEDRAZA MD May 02, 2018 11:25
[2018-05-02 11:45] LABS: PLATELET COUNT, AUTOMATED 45 K/uL (150-450)
--- NOTE | 2018-05-02 13:15 | RADIOLOGY IMAGING REPORT ---
FACILITY: [facility] - [place] PATIENT NAME: Kamar Monsalve : 1955 MR: [id number] V: [id number] EXAM DATE: ORDERING PHYSICIAN: SALEEM PEDRAZA TECHNOLOGIST: [place] [facility] [place] Patient: Kamar Monsalve : 1955 Visit/Account:[id number] Date of Sevice: 05/02/2018 Exam type: VENOUS DOPP LOW RIGHT EXTREMIT History: right calf swelling Comparison: December 27, 2017. Findings: Right lower extremity veins were imaged including the right common femoral vein greater saphenous vei n superficial femoral vein popliteal vein posterior tibial vein, anterior tibial vein and peroneal ve ins revealing no evidence of intraluminal thrombi. The veins were compressible and demonstrated augm entation. Incidentally noted are several prominent fatty replaced lymph nodes in the right groin IMPRESSION: 1. No sonographic evidence DVT involving the right lower extremity veins Several prominent fatty replaced lymph nodes are identified in the right groin Report Dictated By: Dorota Dorsey MD at 05/02/2018 1:08 PM Report E-Signed By: Dorota Dorsey MD at 05/02/2018 1:10 PM WSN:[id number]
[2018-05-02] MEDS ORDERED: IMIPENEM/CILASTA(*) 500MG VIAL 500 MG in NS(*) 0.9% 100 ML BAG 100 ML IVPB SCH (14:00)
[2018-05-02] MEDS ORDERED: GADOBENATE 529MG/1ML 15ML VIAL IVP ONE (15:25)
[2018-05-02 16:34] VITALS: BP 122/68
--- NOTE | 2018-05-02 17:11 | RADIOLOGY IMAGING REPORT ---
FACILITY: [facility] PATIENT NAME: Kamar Monsalve : 1955 MR: [id number] V: [id number] EXAM DATE: ORDERING PHYSICIAN: SALEEM PEDRAZA TECHNOLOGIST: Location: Patient: Kamar Monsalve : 1955 Visit/Account:[id number] Date of Sevice: 05/02/2018 TIBIA RIGHT W W/O CONTRAST INDICATION: History of septic knee. Right calf swelling. COMPARISON: Similar study from 12/13/2016. TECHNIQUE: Multiplanar multisequence MR images were obtained through the right tibia and fibula befor e and after administration of 15 mL IV MultiHance contrast. FINDINGS: There is extensive subcutaneous edema about the right lower leg musculature extending from level of t he gastrocnemius muscles distally to the level of the ankle which may represent cellulitis. Significa nt venous insufficiency could also have this appearance. There is no rim-enhancing fluid collection within the subcutaneous soft tissues on the post contrast images to suggest abscess. There is no acute or aggressive osseous adenopathy visualized right tibia and fibula. Moderate intramuscular edema of the proximal medial head gastrocnemius muscle noted which appears sim ilar to the prior exam as well as the mild intermuscular edema interposed between the soleus muscle a nd medial head gastrocnemius which is likely reactive in nature or related to muscle strain. An infec tious myositis is considered less likely. Visualized right knee on the coronal series shows partial-thickness chondral loss medial compartment cartilage Visualized extensor and flexor tendons at level of the ankle appear intact including the Achilles ten don. IMPRESSION: 1. There is no rim-enhancing fluid collection to suggest abscess on this examination. 2. No acute or aggressive osseous abnormality. 3. Subcutaneous changes edema about the right lower leg may relate to cellulitis versus chronic venou s insufficiency. Correlate with the clinical history. Report Dictated By: Miah Leyva MD at 05/02/2018 5:01 PM Report E-Signed By: Miah Leyva MD at 05/02/2018 5:08 PM WSN:[id number]
[2018-05-02] MEDS: SPIRONOLACTONE 25 MG TAB PO SCH (18:41)
[2018-05-02 20:46] VITALS: BP 120/72
[2018-05-02] MEDS: traMADol 50 MG TAB PO PRN (23:45)
[2018-05-03] MEDS: VANCOMYCIN(*) 1 GM VIAL 2 GM in NS(*) 0.9% 250 ML BAG 250 ML IVPB SCH (00:27)
[2018-05-03 05:12] VITALS: BP 90/41
[2018-05-03] MEDS: IMIPENEM/CILASTA(*) 500MG VIAL 500 MG in NS(*) 0.9% 100 ML BAG 100 ML IVPB SCH (05:18)
[2018-05-03] MEDS ORDERED: FENTANYL PATCH REMOVAL TP SCH (05:50)
[2018-05-03 06:55] LABS: PLATELET COUNT, AUTOMATED 43 K/uL (150-450)
[2018-05-03 09:01] VITALS: BP 111/74
[2018-05-03] MEDS: SPIRONOLACTONE 25 MG TAB PO SCH ×2 (09:20→13:58)
[2018-05-03] MEDS: GABAPENTIN 100 MG CAP PO SCH (09:20)
[2018-05-03] MEDS: PANTOPRAZOLE SOD 40 MG TABEC PO SCH (09:20)
[2018-05-03] MEDS: CEPHALEXIN MONO 500 MG CAP PO SCH ×2 (10:33→13:54)
--- NOTE | 2018-05-03 12:10 | Hospitalist Progress Note ---
Subjective Progress Notes Subjective 62M admitted with AMS and fever, SHYANNE overnight, remains afebrile. Discussed possible courses of treatment and timing of discharge. Patient Complains of: Neurological: No: Syncope Cardiovascular: No: Palpitations Respiratory: No: Cough, Congestion Gastrointestinal: No Nausea, No Vomiting Genitourinary: No Dysuria, No Hematuria Physical Exam Vital Signs Date Time Temp Pulse Resp B/P (MAP) Pulse Ox O2 Delivery O2 Flow Rate FiO2 05/03/18 07:32 96 Room Air 05/03/18 05:12 98.2 64 16 90/41 (57) 04/30/18 02:20 2.0 Intake and Output 05/03/18 06:59 Intake Total 710 ml Output Total 725 ml Balance -15 ml Intake Oral 240 ml IV Total 470 ml Output Urine Total 725 ml Bladder Scan Volume Amount 11-30 ml # Voids 3 # Bowel Movements 1 General Appearance: Alert, Awake, No Acute Distress Neuro: No Gross deficits Eyes: PERRLA ENT: Normal Neck: No Masses Cardiovascular: Normal Rhythm & Peripheral Pulses Respiratory: No Respiratory Distress GI: Soft and Non-Tender Extremities: Soft and Non Tender, Warm, Pulses, Perfused, Edema, Other (+ mild erythema R LE) Integumentary: Other (shallow scattered ulcers, mild erytheema of R LE) Psych: Alert & Oriented X3 Result Diagram: 05/03/18 0541 05/03/18 05 Monitor Interpretation: Normal Sinus Rhythm Assessment and Plan Problems: (1) Fever Assessment & Plan: He presented with fever and AMS. His last fever was in the evening of 04/30. Overall, doing much better. His cultures have been negative to this point. No localizing signs of infection on admission. He has had scattered lesions on legs (and upper extremities to lesser extent) which proceed to shallow ulceration. Likely, these are vasculitic in nature and not infectious. He is followed by Dr. Willard for them. He has a h/o septic right knee and periodically gets warmth, swelling, pain, an erythema over the right calf. He has some erythema/warmth/tenderness now. Doppler negative for DVT, and MRI of the knee and tib/fib showed possible cellulitis vs chronic venous changes without discreet fluid collection. Since we do not anticipate any guidance on Cx and after discussing with patient will narrow to Keflex to cover non-purulent cellulitis. Observe at least until evening then reassess and possible d/c home with follow up next week. (2) Purpura Assessment & Plan: He does report multiple pustules about the legs and trunk. These are all currently in healing stage and do not appear to be infected. Autoimmune studies have either been negative or are still pending. Tissue biopsy may be indicated if these don't resolve. (3) Altered mental status Status: Resolved Assessment & Plan: A head CT and brain MRI were negative. His mental status is now at baseline. He was using a fentanyl patch prior to admission, which was removed. Will restart for his chronic right knee pain. (4) Pancytopenia Status: Acute Assessment & Plan: Chronic. Possibly related to liver failure/disease. Could also be related to autoimmune process. May benefit from outpatient heme/onc consult. No emergent indication for continuing hospitalization 2/2 leukopenia. (5) Cirrhosis Status: Chronic Assessment & Plan: The etiology is unclear, suspect some form of autoimmune disorder vs. steatohepatitis. Hepatitis viral serologies were negative in 2013 when diagnosed. Question if all of the processes could be related to an autoimmune disorder. (6) Chronic pain Assessment & Plan: On chronic Fentanyl patch and Tramadol. Exam Sepsis Risk: No Definite Risk ZHOU LYNN PETERS DO May 03, 2018 12:10
[2018-05-03 13:57] VITALS: BP 120/70
[2018-05-03] MEDS ORDERED: CEPH500C24 PO (14:30)
--- NOTE | 2018-05-03 14:35 | Hospitalist Depart ---
Discharge Summary Reason for Hosp/Final Diag: (1) Fever Hospital Course & Plan: He presented with fever and AMS. His last fever was in the evening of 04/30. Overall, doing much better. His cultures have been negative to this point. No localizing signs of infection on admission. He has had scattered lesions on legs (and upper extremities to lesser extent) which proceed to shallow ulceration. Likely, these are vasculitic in nature and not infectious. He is followed by Dr. Willard for them. He has a h/o septic right knee and periodically gets warmth, swelling, pain, an erythema over the right calf. He has some erythema/warmth/tenderness now. Doppler negative for DVT, and MRI of the knee and tib/fib showed possible cellulitis vs chronic venous changes without discreet fluid collection. Since we do not anticipate any guidance on Cx and after discussing with patient will narrow to Keflex to cover non-purulent cellulitis. Given return and follow up instruction. (2) Purpura Hospital Course & Plan: He does report multiple pustules about the legs and trunk. These are all currently in healing stage and do not appear to be infected. Autoimmune studies have either been negative or are still pending. Tissue biopsy may be indicated if these don't resolve. (3) Altered mental status Status: Resolved Hospital Course & Plan: A head CT and brain MRI were negative. His mental status is now at baseline. He was using a fentanyl patch prior to admission, which was removed. Will restart for his chronic right knee pain. (4) Pancytopenia Status: Acute Hospital Course & Plan: Chronic. Possibly related to liver failure/disease. Could also be related to autoimmune process. No emergent indication for continuing hospitalization 2/2 leukopenia. Believe hematology consult is warranted to rule out hematopoietic cause of pancytopenia. (5) Cirrhosis Status: Chronic Hospital Course & Plan: The etiology is unclear, suspect some form of autoimmune disorder vs. steatohepatitis. Hepatitis viral serologies were negative in 2013 when diagnosed. Question if all of the processes could be related to an autoimmune disorder. (6) Chronic pain Hospital Course & Plan: On chronic Fentanyl patch and Tramadol. Departure Weight (Pounds): 305 Weight (Ounces): 8.0 Result Diagram: 05/03/1854005/03/18540 Condition: Improved Discharge: Home Discharge Instructions Home Meds Active Scripts Cephalexin Monohydrate (CEPHALEXIN) 500 Mg Cap, 500 MG PO QID for 7 Days, #28 CAP Prov:LYNN VORA DO 05/03/18 Tramadol Hcl (TRAMADOL HCL) 50 Mg Tablet, 50 MG PO BID PRN for pain, #60 TAB 3 Refills Prov:MARGIE DODGE MD 04/08/18 Fentanyl 12 Mcg Patch (DURAGESIC 12 MCG PATCH) 1 Each Patch.td72, 1 EACH TD Q72H, #10 PATCH.72H on or after 06/08/2018 Prov:MARGIE DODGE MD 04/08/18 Eplerenone (EPLERENONE) 50 Mg Tablet, 50 MG PO DIRECTED, #60 TAB 3 Refills half tablet daily x 1 week 1 tablet daily x 1 week than 1 tablet bid x 1 week Prov:MARGIE DODGE MD 04/08/18 Gabapentin (GABAPENTIN) 100 Mg Capsule, 1-3 TAB PO BID PRN for rls, #60 CAPSULE 3 Refills Prov:MARGIE DODGE MD 04/08/18 Nadolol (NADOLOL) 40 Mg Tablet, 40 MG PO QDAY, #90 TAB 3 Refills Prov:MARGIE DODGE MD 09/24/17 Mupirocin Abhishek 2% Cream (MUPIROCIN 2% CREAM) 15 Gm Cream..g., 0 NA BID, #15 GM Prov:MARGIE DODGE MD 05/27/17 Pantoprazole Sodium (PANTOPRAZOLE SODIUM) 40 Mg Tablet.dr, 40 MG PO QDAY, #30 TAB.SR 3 Refills Prov:MARGIE DODGE MD 03/06/17 Ondansetron Hcl (ONDANSETRON HCL) 4 Mg Tablet, 4 MG PO TID PRN for NAUSEA/VOMITING, #30 TAB 1 Refill Prov:MARGIE DODGE MD 01/15/17 Reported Medications Albuterol Sulfate (PROVENTIL HFA) Unknown Strength Inh, 1-2 PUFF INH PRN, INH 05/28/16 Diet: Regular Copies to: MARGIE DODGE MD ; Venous Thromboembolism Antithrombotics Is Pt On Any Antithrombotics?: No (purpuric rash with thrombocytopenia, SCD only.) LYNN VORA DO May 03, 2018 14:34
[2018-05-05] MEDS ORDERED: PATCH REMOVAL 1 EA TP SCH (09:00)
== END 2018-05-03 15:10 | disposition home or self-care (01) | DRG 603 ==
LOC: ER 23:21 → MED 04-30 03:24
PROVIDERS: ADMIT Internal Medicine; ATTEND Internal Medicine
DX: L03.115 Cellulitis of right lower limb (principal); D61.818 Other pancytopenia; D69.2 Other nonthrombocytopenic purpura; R41.82 Altered mental status, unspecified; K74.60 Unspecified cirrhosis of liver; G89.29 Other chronic pain; Z86.14 Personal history of Methicillin resistant Staphylococcus aureus infection; Z88.5 Allergy status to narcotic agent
CPT/HCPCS: 36415; 70450; 70553; 71045; 74177; 80202; 80320; 81001; 82040; 82085; 82140; 82247; 82310; 82374; 82435; 82550; 82565; 82595; 82947; 83605; 84075; 84132; 84155; 84295; 84450; 84460; 84520; 85025; 85610; 85651; 85730; 86038; 86140; 86160; 86225; 86255; 86788; 86789; 87040; 87088; 96361; 96365; 96367; 96375; 99285; A9577; J0743; J1885; J2060; J2543; J3370; J3535; J7030; J7050; Q9967

== ENCOUNTER → 2018-04-29 | Outpatient (CLI) | payer OTHER ==
[~2018-04-29] MED LIST changes: +EPLE50TA11 PO; +FENT-88 TD
[2018-04-30 09:10] VITALS: BMI 37.1
== END ==
LOC: AMB 22:11
PROVIDERS: ATTEND Nurse Practitioner
DX: R41.82 Altered mental status, unspecified (principal); R50.9 Fever, unspecified
CPT/HCPCS: A0425; A0427

== ENCOUNTER → 2018-05-07 | Outpatient (CLI) | payer OTHER ==
[2018-04-30 09:10] VITALS: BMI 37.1
[2018-05-07 14:25] LABS: PLATELET COUNT, AUTOMATED 77 K/uL (150-450)
== END ==
LOC: LAB 13:59
PROVIDERS: ATTEND Internal Medicine
DX: D61.818 Other pancytopenia (principal); M00.9 Pyogenic arthritis, unspecified; D72.819 Decreased white blood cell count, unspecified
CPT/HCPCS: 36415; 82040; 82247; 82310; 82374; 82435; 82565; 82947; 84075; 84132; 84155; 84295; 84450; 84460; 84520; 85025; 85651; 86140

== ENCOUNTER → 2018-05-13 | Outpatient (CLI) | payer OTHER ==
[2018-04-30 09:10] VITALS: BMI 37.1
[~2018-05-13] MED LIST changes: +FLU60SYR36 IM
[2018-05-13 16:39] LABS: PLATELET COUNT, AUTOMATED 115 K/uL (150-450)
== END ==
LOC: LAB 16:06
PROVIDERS: ATTEND Internal Medicine
DX: K74.60 Unspecified cirrhosis of liver (principal); D61.818 Other pancytopenia; R60.9 Edema, unspecified
CPT/HCPCS: 36415; 82040; 82247; 82310; 82374; 82435; 82565; 82947; 84075; 84132; 84155; 84295; 84450; 84460; 84520; 85025; 86140

== ENCOUNTER → 2018-05-27 | Outpatient (REF) ==
[2018-04-30 09:10] VITALS: BMI 37.1
[2018-05-27 10:30] LABS: LDL CHOLESTEROL 38 mg/dl
== END ==
DX: Z02.9 Encounter for administrative examinations, unspecified (principal)

== ENCOUNTER 2018-07-05 14:47 | Emergency (ER) | payer OTHER ==
[2018-04-30 09:10] VITALS: Wt 138.6 kg
[2018-07-05] MEDS ORDERED: LACT10SO62 PO (14:56)
[2018-07-05] MEDS ORDERED: NS(*) 0.9% 1000 ML BAG 1,000 ML IV ONE ×2 (15:06→16:40)
[2018-07-05 15:48] LABS: PLATELET COUNT, AUTOMATED 55 K/uL (150-450)
--- NOTE | 2018-07-05 15:49 | EKG ---
[place] [facility] [place] NAME: CLEMENT SINCLAIR : [id number] MR: [id number] V: [id number] EXAM DATE: ORDERING PHYSICIAN: NATI JOHNSTON TECHNOLOGIST: RAIMUNDO Test Reason : FEVER Blood Pressure : / mmHG Vent. Rate : 074 BPM Atrial Rate : 074 BPM P-R Int : 218 ms QRS Dur : 092 ms QT Int : 416 ms P-R-T Axes : 001 055 009 degrees QTc Int : 461 ms Sinus rhythm with 1st degree AV block Otherwise normal ECG When compared with ECG of 01-DEC-2016 11:59, MI interval has increased Confirmed by Audie Yanes ([id number]) on 07/05/2018 10:29:59 PM Referred By: VICKIE Confirmed By:Audie Zayas
[2018-07-05 15:54] LABS: INR 1.55
--- NOTE | 2018-07-05 16:01 | ER Report ---
History and Physical Time Seen By MD: 15:25 Hx. of Stated Complaint: RIGHT LEG EDEMA X3 DAYS AND FEVER. HPI/ROS CHIEF COMPLAINT: fever, swelling of leg and abdomen HISTORY OF PRESENT ILLNESS: Pt here with his . Pt started with swelling to his r lower extremity Saturday. Today pt developed fever of 101.7. When he had his fever he was confused so brought him to ed. Pts fever broke prior to ed arrival and pt is no longer confused. Pt states that he has had more of a distended abdomen that is tender lower. Pt also has had nose bleeds. Pt has had intermittent headaches. Had a cough last night. No change in stools. no nausea or vomiting. Pt in Ed noticed his left lower extremity is red. His right lower extremity is more swollen then his baseline. Pt has hx of MRSA infection in right knee. Pt states that he was admitted in April for similar episodes of today. REVIEW OF SYSTEMS: Constitutional: + fever, no chills. Eyes: No discharge. ENT: No sore throat, + nose bleed Cardiovascular: No chest pain, no palpitations. Respiratory: + cough, no shortness of breath. Gastrointestinal: + abdominal pain, no vomiting. Genitourinary: No hematuria. Musculoskeletal: No back pain, + swelling to r leg Skin: No rashes, + erythema to left leg Neurological: No headache. Allergies: Coded Allergies: horse dander (Verified Allergy, Unknown, 07/05/18) morphine (Verified Allergy, Unknown, NAUSEA/VOMITING, 07/05/18) Home Meds Active Scripts Cephalexin 500 Mg Tab (KEFLEX 500 MG TAB) 500 Mg Tablet, 500 MG PO TID, #21 TAB Prov:CR DEVINE DO 07/05/18 Sulfamethoxazole/Trimet 800-160 Mg Tab (BACTRIM DS TABLET) 1 Each Tablet, 1 TAB PO Q12H, #14 TAB Prov:CR DEVINE DO 07/05/18 Tramadol Hcl (TRAMADOL HCL) 50 Mg Tablet, 50 MG PO BID PRN for pain, #60 TAB 3 Refills Prov:MARGIE DODGE MD 04/08/18 Fentanyl 12 Mcg Patch (DURAGESIC 12 MCG PATCH) 1 Each Patch.td72, 1 EACH TD Q72H, #10 PATCH.72H on or after 06/08/2018 Prov:MARGIE DDOGE MD 04/08/18 Eplerenone (EPLERENONE) 50 Mg Tablet, 50 MG PO DIRECTED, #60 TAB 3 Refills half tablet daily x 1 week 1 tablet daily x 1 week than 1 tablet bid x 1 week Prov:MARGIE DODGE MD 04/08/18 Gabapentin (GABAPENTIN) 100 Mg Capsule, 1-3 TAB PO BID PRN for rls, #60 CAPSULE 3 Refills Prov:MARGIE ODDGE MD 04/08/18 Mupirocin Abhishek 2% Cream (MUPIROCIN 2% CREAM) 15 Gm Cream..g., 0 NA BID, #15 GM Prov:MARGIE DODGE MD 05/27/17 Pantoprazole Sodium (PANTOPRAZOLE SODIUM) 40 Mg Tablet.dr, 40 MG PO QDAY, #30 TAB.SR 3 Refills Prov:MARGIE DODGE MD 03/06/17 Ondansetron Hcl (ONDANSETRON HCL) 4 Mg Tablet, 4 MG PO TID PRN for NAUSEA/VOMITING, #30 TAB 1 Refill Prov:MARGIE DOGDE MD 01/15/17 Reported Medications Lactulose (LACTULOSE) 10 Gm/15 Ml Solution, 15-30 ML PO TID 07/05/18 Albuterol Sulfate (PROVENTIL HFA) Unknown Strength Inh, 1-2 PUFF INH PRN, INH 05/28/16 Discontinued Scripts Nadolol (NADOLOL) 40 Mg Tablet, 40 MG PO QDAY, #90 TAB 3 Refills Prov:MARGIE DODGE MD 09/24/17 Past Medical/Surgical History Pmhx: purpura, MRSA r kneee, Pancytopenia, sepsis, cirrhosis, hepatic encephalopathy Hx Smoking: No Smoking Status: Never Smoker Hx Substance Use Disorder: No Hx Alcohol Use: No Constitutional Vital Sign - Last 24 Hours 07/05/18 07/05/18 07/05/18 07/05/18 14:51 15:00 15:15 15:45 Temp 98.6 Pulse 80 77 76 74 Resp 20 18 B/P (MAP) 99/62 98/53 (68) 88/51 (63) 91/52 (65) Pulse Ox 95 94 94 92 O2 Delivery Room Air 07/05/18 07/05/18 07/05/18 07/05/18 16:04 16:30 16:32 16:35 Pulse 72 Resp 18 B/P (MAP) 89/54 (66) 95/52 (66) 95/57 (70) Pulse Ox 96 07/05/18 07/05/18 07/05/18 07/05/18 16:38 16:42 17:15 17:30 Pulse 74 72 73 72 73 Resp 13 12 B/P (MAP) 94/61 (72) 95/52 (66) 89/41 (57) 97/60 (72) 95/57 (70) 94/61 (72) Pulse Ox 95 96 07/05/18 07/05/18 17:45 18:00 Pulse 69 69 Resp 11 8 B/P (MAP) 99/53 (68) 98/53 (68) Pulse Ox 97 Physical Exam General Appearance: The patient is alert, has no immediate need for airway protection and no signs of toxicity. Eyes: Pupils equal and round no pallor or injection, EOMI ENT: no pharyngeal erythema or exudates, Mucous membranes are moist, Respiratory: There are no retractions, lungs are decreased left base otherwise clear Cardiovascular: Regular rate and rhythm. pulses are equal and symmetrical Gastrointestinal: Abdomen is distended and mild tenderness to LLQ, no masses, bowel sounds normal, no guarding, no rigidity or rebound Neurological: Cranial nerves II-XII grossly intact, no sensory or motor loss Skin: Warm and dry, no rashes, + erythema left lower leg below knee to ankle Musculoskeletal: Neck is supple non tender, no vertebral tenderness Extremitiesr tender calf with swelling. Has full range of motion. DIFFERENTIAL DIAGNOSIS: After history and physical exam differential diagnosis was considered for sepsis, ascites, dvt, venous insuff, cellulitis, hepatic encephalopathy, influenza, pneumonia, panctyopenia Medical Decision Making Data Points Result Diagram: 07/05/18 1529 07/05/18 1529 Laboratory Hematology Test 07/05/18 15:20 07/05/18 15:29 Influenza Virus Type A (PCR) Negative (NEGATIVE) Influenza Virus Type B (PCR) Negative (NEGATIVE) Red Blood Count 3.87 M/uL (4.00-5.60) Mean Corpuscular Volume 99.4 fL (80.0-96.0) Mean Corpuscular Hemoglobin 33.9 pg (26.0-33.0) Mean Corpuscular Hemoglobin Concent 34.1 g/dL (32.0-36.0) Red Cell Distribution Width 14.7 % (11.5-14.5) Mean Platelet Volume 8.9 fL (7.2-11.1) Neutrophils (%) (Auto) 83.9 % (39.4-72.5) Lymphocytes (%) (Auto) 6.8 % (17.6-49.6) Monocytes (%) (Auto) 7.4 % (4.1-12.4) Eosinophils (%) (Auto) 1.6 % (0.4-6.7) Basophils (%) (Auto) 0.3 % (0.3-1.4) Nucleated RBC Relative Count (auto) 0.0 /100WBC Neutrophils # (Auto) 4.0 K/uL (2.0-7.4) Lymphocytes # (Auto) 0.3 K/uL (1.3-3.6) Monocytes # (Auto) 0.4 K/uL (0.3-1.0) Eosinophils # (Auto) 0.1 K/uL (0.0-0.5) Basophils # (Auto) 0.0 K/uL (0.0-0.1) Nucleated RBC Absolute Count (auto) 0.00 K/uL Peripheral Blood Smear Yes Y/N Erythrocyte Sedimentation Rate 4 mm/HOUR (0-20) Prothrombin Time 18.8 seconds (12.0-14.4) Prothromb Time International Ratio 1.55 Activated Partial Thromboplast Time 45 seconds (23-35) Sodium Level 137 mmol/L (137-145) Potassium Level 4.6 mmol/L (3.5-5.0) Chloride Level 106 mmol/L (98-107) Carbon Dioxide Level 24 mmol/L (22-30) Blood Urea Nitrogen 13 mg/dl (9-21) Creatinine 1.10 mg/dl (0.66-1.25) Glomerular Filtration Rate Calc > 60.0 Random Glucose 87 mg/dl (75-110) Lactate 1.1 mmol/L (0.7-2.1) Calcium Level 8.8 mg/dl (8.4-10.2) Total Bilirubin 3.1 mg/dl (0.2-1.3) Aspartate Amino Transf (AST/SGOT) 64 U/L (0-35) Alanine Aminotransferase (ALT/SGPT) 45 U/L (0-56) Alkaline Phosphatase 73 U/L (0-126) Ammonia 13 UMOL/L (9-33) C-Reactive Protein 2.0 mg/dl (<1.0) Total Protein 7.5 g/dl (6.3-8.2) Albumin 3.3 g/dl (3.5-5.0) Chemistry Test 07/05/18 15:20 07/05/18 15:29 Influenza Virus Type A (PCR) Negative (NEGATIVE) Influenza Virus Type B (PCR) Negative (NEGATIVE) White Blood Count 4.7 k/uL (4.5-11.0) Red Blood Count 3.87 M/uL (4.00-5.60) Hemoglobin 13.1 g/dL (14.0-18.0) Hematocrit 38.4 % (42.0-52.0) Mean Corpuscular Volume 99.4 fL (80.0-96.0) Mean Corpuscular Hemoglobin 33.9 pg (26.0-33.0) Mean Corpuscular Hemoglobin Concent 34.1 g/dL (32.0-36.0) Red Cell Distribution Width 14.7 % (11.5-14.5) Platelet Count 55 K/uL (150-450) Mean Platelet Volume 8.9 fL (7.2-11.1) Neutrophils (%) (Auto) 83.9 % (39.4-72.5) Lymphocytes (%) (Auto) 6.8 % (17.6-49.6) Monocytes (%) (Auto) 7.4 % (4.1-12.4) Eosinophils (%) (Auto) 1.6 % (0.4-6.7) Basophils (%) (Auto) 0.3 % (0.3-1.4) Nucleated RBC Relative Count (auto) 0.0 /100WBC Neutrophils # (Auto) 4.0 K/uL (2.0-7.4) Lymphocytes # (Auto) 0.3 K/uL (1.3-3.6) Monocytes # (Auto) 0.4 K/uL (0.3-1.0) Eosinophils # (Auto) 0.1 K/uL (0.0-0.5) Basophils # (Auto) 0.0 K/uL (0.0-0.1) Nucleated RBC Absolute Count (auto) 0.00 K/uL Peripheral Blood Smear Yes Y/N Erythrocyte Sedimentation Rate 4 mm/HOUR (0-20) Prothrombin Time 18.8 seconds (12.0-14.4) Prothromb Time International Ratio 1.55 Activated Partial Thromboplast Time 45 seconds (23-35) Glomerular Filtration Rate Calc > 60.0 Lactate 1.1 mmol/L (0.7-2.1) Calcium Level 8.8 mg/dl (8.4-10.2) Total Bilirubin 3.1 mg/dl (0.2-1.3) Aspartate Amino Transf (AST/SGOT) 64 U/L (0-35) Alanine Aminotransferase (ALT/SGPT) 45 U/L (0-56) Alkaline Phosphatase 73 U/L (0-126) Ammonia 13 UMOL/L (9-33) C-Reactive Protein 2.0 mg/dl (<1.0) Total Protein 7.5 g/dl (6.3-8.2) Albumin 3.3 g/dl (3.5-5.0) Coagulation Test 07/05/18 15:29 Prothrombin Time 18.8 seconds Prothromb Time International Ratio 1.55 Activated Partial Thromboplast Time 45 seconds EKG/Imaging EKG Interpretation nsr @ 75 with first degree av block ED Course/Re-evaluation Clinical Indication for ER IV: Hydration, IV Access ED Course check labs and imaging 07/05/2018 5:37:57 pm Pt states he is feeling better. Pts lactate is negative. Pts labs are consistent with his portal hypertension/cirrhosis. Ct does not show any acute changes from prior. PT asking to go home. Will review case with hospitalist Spoke with Dr. Zayas who feels pt can go home on outpt antibiotics but also admission could be considered. PT wants to go home and lives close. states she can take his pressure at home and will monitor. Pt states he will come back if symptoms worsen. Decision to Disposition Date: Jul 05, 2018 Decision to Disposition Time: 18:21 Depart Departure Latest Vital Signs Vital Signs Date Time Temp Pulse Resp B/P (MAP) Pulse Ox O2 Delivery O2 Flow Rate FiO2 07/05/18 18:00 69 8 98/53 (68) 07/05/18 17:45 97 07/05/18 14:51 98.6 Room Air Impression: Primary Impression: Cellulitis of left lower extremity Additional Impressions: Portal hypertension Thrombocytopenia Condition: Improved Disposition: HOME OR SELF-CARE Referrals: MARGIE DODGE MD (PCP) 5 Days New Scripts Cephalexin 500 Mg Tab (KEFLEX 500 MG TAB) 500 Mg Tablet 500 MG PO TID, #21 TAB Prov: CR DEVINE DO 07/05/18 Sulfamethoxazole/Trimet 800-160 Mg Tab (BACTRIM DS TABLET) 1 Each Tablet 1 TAB PO Q12H, #14 TAB Prov: CR DEVINE DO 07/05/18 Departure Forms: ER Transition Record, Medications Reconciliation, Patient Portal Information Patient Instructions: Cellulitis (ED), Cirrhosis (ED), Fever in Adults (ED), Portal Hypertension (ED) Additional Instructions: Follow up with your doctor. If your symptoms worsen prior to seeing your doctor then please return immediately. If your blood cultures are positive we will call you. Keflex three times a day for 7 days. bactrim twice a day for 7 days. Problem Qualifiers CR DEVINE DO Jul 05, 2018 16:01
[2018-07-05] MEDS ORDERED: IOPAMIDOL 76% 100 ML INFUS BTL 100 ML ONE (16:09)
--- NOTE | 2018-07-05 16:37 | RADIOLOGY IMAGING REPORT ---
FACILITY: [facility] PATIENT NAME: Kamar Monsalve : 1955 MR: [id number] V: [id number] EXAM DATE: ORDERING PHYSICIAN: NATI JOHNSTON TECHNOLOGIST: Location: [facility] Patient: Kamar Monsalve : 1955 Visit/Account:[id number] Date of Sevice: 07/05/2018 Chest 2 views: HISTORY: Fever, distended abdomen. COMPARISON: 04/29/2018 FINDINGS: Frontal and lateral chest: Cardiomediastinal silhouette is within normal limits. There is n o infiltrate or pleural effusion. No pneumothorax. Pulmonary vasculature is normal. Osseous structures are within normal limits. Visualized bowel gas is unremarkable. IMPRESSION: No evidence of acute cardiopulmonary abnormality. Report Dictated By: Lily Maki MD at 07/05/2018 4:30 PM Report E-Signed By: Lily Maki MD at 07/05/2018 4:32 PM WSN:[id number]
--- NOTE | 2018-07-05 17:02 | RADIOLOGY IMAGING REPORT ---
FACILITY: [facility] - [place], [place] PATIENT NAME: Kamar Monsalve : 1955 MR: [id number] V: [id number] EXAM DATE: ORDERING PHYSICIAN: CR DEVINE TECHNOLOGIST: Location: [facility] Patient: Kamar Monsalve : 1955 Visit/Account:[id number] Date of Sevice: 07/05/2018 ABDOMEN/PELVIS WITH CONTRAST EXAMINATION: CT Abdomen W/Contrast CT Pelvis W/Contrast HISTORY: Fever, distended abdomen TECHNIQUE: Spiral scan was obtained through the abdomen and pelvis during injection of nonionic iodin ated intravenous contrast. One of the following dose optimization techniques was utilized in the performance of this exam: Autom ated exposure control; adjustment of the mA and/or kV according to the patient's size; or use of an i terative reconstruction technique. Specific details can be referenced in the facility's radiology C T exam operational policy. Contrast: 97 mL of IV Isovue-370. COMPARISON STUDIES: 04/30/2018 FINDINGS: Liver / biliary: , Right lobe is hypertrophied consistent with known cirrhosis. There are extensive v arices in the upper abdomen similar to previous. No focal liver lesion identified. There is no intrah epatic ductal dilatation. Gallbladder is grossly unremarkable. Pancreas: Negative Spleen: Splenomegaly. Spleen measures 18 to 19 cm in craniocaudal dimension. Splenic varices are note d. Adrenal glands: Negative Kidneys / retroperitoneum: Kidneys enhance normally and symmetrically. Superior pole right renal cyst s noted and unchanged. There is no evidence of renal or ureteral obstruction. Pelvic structures: Negative Bowel / peritoneum / mesenteries: Large volume of stool is present in the colon in colon is mildly di stended. There is no evidence of obstruction. There is no bowel wall thickening. Appendix is identifi ed and is normal. There is no evidence of diverticulitis. No free fluid or free air is identified. Th ere is stranding of the mesenteric fat most significant in the midline into the right. This could be secondary to the patient's cirrhosis and portal hypertension. This was present on the prior study. Th ere are abnormalities 2 suggest inflammation. Vessels: Incidental note made of a retroaortic left renal vein. Musculoskeletal / Body wall: Degenerative changes are present in the lumbar spine. There is no focal body wall lesion. There is mild subcutaneous edema overlying the left flank. Lymph node assessment: Mildly prominent lymph nodes are present in the inguinal regions bilaterally, some of these are larger than on the previous study. There is no periaortic adenopathy. Lower chest: Negative IMPRESSION: 1. Findings consistent with cirrhosis and portal hypertension as described above. This includes splen omegaly and large upper abdominal varices. These findings are unchanged. 2. Mesenteric edema, likely related to cirrhosis and portal hypertension. There is no ascites. 3. Increasing bilateral inguinal adenopathy of uncertain etiology or significance. No skip be reactiv e. Neoplastic nodes are not excluded. Further workup if clinically indicated. 4. Large volume of stool the colon with mild distention of the colon. There is no evidence of obstruc tion. Report Dictated By: Lily Maki MD at 07/05/2018 4:36 PM Report E-Signed By: Lily Maki MD at 07/05/2018 4:58 PM WSN:[id number]
[2018-07-05] MEDS ORDERED: cefTRIAXone 1 GM VIAL IVP ONE (17:25)
[2018-07-05 18:00] VITALS: BP 98/53
--- NOTE | 2018-07-05 18:03 | RADIOLOGY IMAGING REPORT ---
FACILITY: [facility] PATIENT NAME: Kamar Monsalve : 1955 MR: [id number] V: [id number] EXAM DATE: ORDERING PHYSICIAN: CR DEVINE TECHNOLOGIST: Location: [facility] Patient: Kamar Monsalve : 1955 Visit/Account:[id number] Date of Sevice: 07/05/2018 Bilateral lower extremity duplex venous ultrasound Indication: Bilateral leg swelling. Comparison: 05/05/2018. Findings: Duplex Doppler and color flow imaging was performed. The bilateral common femoral, femoral , and popliteal veins are all patent and compressible with normal Doppler wave forms. There are norm al responses to augmentation. The bilateral posterior tibial and peroneal veins are clear. The proximal greater saphenous veins are also normal. Prominent lymph nodes seen in both groin areas. The right side is similar to the previous exam. These are nonspecific. Subcutaneous tissues are otherwise unremarkable. Impression: 1. No evidence of deep venous thrombosis of the bilateral lower extremities. Report Dictated By: Chidi Alonzo at 07/05/2018 5:58 PM Report E-Signed By: Chidi Alonzo at 07/05/2018 5:59 PM WSN:[id number]
[2018-07-05] MEDS ORDERED: CEPH500T7 PO (18:21)
[2018-07-05] MEDS ORDERED: SULF-198 PO (18:21)
== END 2018-07-05 18:30 | disposition home or self-care (01) ==
LOC: ER 15:23
DX: L03.116 Cellulitis of left lower limb (principal); K76.6 Portal hypertension; D69.6 Thrombocytopenia, unspecified
CPT/HCPCS: 36415; 71046; 74177; 82140; 83605; 85025; 85610; 85651; 85730; 86140; 86850; 86900; 86901; 87040; 87502; 93005; 93970; 96361; 96374; 99285; J0696; J7030; Q9967; 82040; 82247; 82310; 82374; 82435; 82565; 82947; 84075; 84132; 84155; 84295; 84450; 84460; 84520

== ENCOUNTER → 2018-09-02 | Outpatient (CLI) | payer OTHER ==
[2018-04-30 09:10] VITALS: BMI 37.1
[~2018-09-02] MED LIST changes: +CEPH500T7 PO; +DULO30CA35 PO; +FURO-47 PO; +LACT10SO62 PO
[2018-09-02 08:30] LABS: INR 1.69
[2018-09-02 08:42] LABS: PLATELET COUNT, AUTOMATED 48 K/uL (150-450)
== END ==
LOC: LAB 07:59
PROVIDERS: ATTEND Internal Medicine
DX: K74.60 Unspecified cirrhosis of liver (principal); G89.29 Other chronic pain; L08.9 Local infection of the skin and subcutaneous tissue, unspecified
CPT/HCPCS: 36415; 82040; 82140; 82247; 82310; 82374; 82435; 82565; 82947; 84075; 84132; 84155; 84295; 84450; 84460; 84520; 85025; 85610; 85730

== ENCOUNTER → 2018-10-24 | Outpatient (CLI) | payer OTHER ==
[2018-04-30 09:10] VITALS: BMI 37.1
[~2018-10-24] MED LIST changes: +FENT1PAT40 TD
[2018-10-24 10:08] LABS: PLATELET COUNT, AUTOMATED 57 K/uL (150-450)
[2018-10-24 10:18] LABS: INR 1.72
== END ==
LOC: LAB 09:38
PROVIDERS: ATTEND Internal Medicine
DX: K74.60 Unspecified cirrhosis of liver (principal); R41.82 Altered mental status, unspecified; G89.29 Other chronic pain; R60.9 Edema, unspecified; L08.9 Local infection of the skin and subcutaneous tissue, unspecified; R10.9 Unspecified abdominal pain
CPT/HCPCS: 36415; 81001; 82040; 82140; 82150; 82247; 82310; 82374; 82435; 82565; 82947; 83690; 84075; 84132; 84155; 84295; 84443; 84450; 84460; 84520; 85025; 85610

== ENCOUNTER → 2018-10-29 | Outpatient (CLI) | payer OTHER ==
[2018-04-30 09:10] VITALS: BMI 37.1
--- NOTE | 2018-10-29 09:07 | RADIOLOGY IMAGING REPORT ---
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 Liver: Liver appears very heterogeneous and is borderline enlarged at 16.8 cm in length. Common duct: Normal measuring 4.1 mm. Pancreas: Not seen due to overlying bowel gas Spleen: Spleen is enlarged measuring 17.1 cm in length. Kidneys: Normal in size and echogenicity, the right measures 10.6 cm in length, and the left 13.8 cm . No hydronephrosis. There two cysts in the right kidney largest is in the upper pole measuring 4.8 cm in diameter the smaller of the two measures 1.7 cm also in the upper pole Upper abdominal aorta and IVC: Negative. Ascites: None. IMPRESSION: Heterogeneous appearance to the liver which is borderline enlarged Spleen is enlarged measuring 17.1 cm in length Two right renal cysts Report Dictated By: Dorota Dorsey MD at 10/29/2018 8:56 AM Report E-Signed By: Dorota Dorsey MD at 10/29/2018 9:02 AM WSN:KELLY
== END ==
LOC: US 00:42
PROVIDERS: ATTEND Internal Medicine
DX: R16.1 Splenomegaly, not elsewhere classified (principal); N28.1 Cyst of kidney, acquired
CPT/HCPCS: 76700

== ENCOUNTER 2018-11-13 08:24 | Emergency (ER) | payer OTHER ==
[2018-04-30 09:10] VITALS: Wt 130.0 kg
--- NOTE | 2018-11-13 08:25 | ER Report ---
History and Physical Time Seen By MD: 08:25 HPI/ROS CHIEF COMPLAINT: Possible foot infection HISTORY OF PRESENT ILLNESS: Patient is a 63-year-old male presents to the emergency department with concern for right lower extremity cellulitis. Patient has a history of multiple skin infections as well as sepsis. Patient is currently on doxycycline for an upper thigh infection which seems to have improved however patient noticed redness and swelling to the right lower extremity over the past 5-6 days. He reports subjective fevers at home. He den ies chills. Denies headache, chest pain denies shortness of breath denies abdominal pain denies nausea vomiting or diarrhea. Patient denies any recent injury. Patient does have a history of lower extremity swelling. REVIEW OF SYSTEMS: Constitutional: Subjective fevers Cardiovascular: No chest pain, no palpitations. Respiratory: No cough, no shortness of breath. Gastrointestinal: No abdominal pain, no vomiting. Skin: Erythema to right lower extremity Neurological: No headache. Allergies: Coded Allergies: horse dander (Verified Allergy, Unknown, 07/05/18) morphine (Verified Allergy, Unknown, NAUSEA/VOMITING, 07/05/18) Home Meds Active Scripts Vancomycin Hcl (VANCOMYCIN HCL) 250 Mg Capsule, 500 MG PO Q8H for 10 Days, #30 CAPSULE 0 Refills Prov:NATI JOHNSTON MD 11/13/18 Tramadol Hcl (TRAMADOL HCL) 50 Mg Tablet, 100 MG PO Q8H PRN for PAIN, #20 TAB 0 Refills Prov:NATI JOHNSTON MD 11/13/18 Doxycycline Hyclate (DOXYCYCLINE HYCLATE) 100 Mg Tablet, 100 MG PO QDAY, #7 TAB Prov:MARGIE DODGE MD 11/12/18 Tramadol Hcl (TRAMADOL HCL) 50 Mg Tablet, 50 MG PO BID PRN for pain, #60 TAB 3 Refills Prov:MARGIE DODGE MD 11/05/18 Fentanyl (Fentanyl) 1 Each Patch.td72, 12 MCG TD Q72H, #10 PATCH.72H Prov:MARGIE DODGE MD 11/05/18 Furosemide (FUROSEMIDE) 40 Mg Tablet, 1 TAB PO QDAY, #30 TAB 6 Refills Prov:MARGIE DODGE MD 10/24/18 Pantoprazole Sodium (PANTOPRAZOLE SODIUM) 40 Mg Tablet.dr, 40 MG PO QDAY, #30 TAB.SR 6 Refills Prov:MARGIE DODGE MD 10/24/18 Gabapentin (GABAPENTIN) 100 Mg Capsule, 1-3 TAB PO BID PRN for rls for 90 Days, #60 CAPSULE 4 Refills Prov:MARGIE DODGE MD 10/16/18 Eplerenone (EPLERENONE) 50 Mg Tablet, 50 MG PO BID, #60 TAB 3 Refills Prov:MARGIE DODGE MD 07/16/18 Mupirocin Abhishek 2% Cream (MUPIROCIN 2% CREAM) 15 Gm Cream..g., 0 NA BID, #15 GM Prov:MARGIE DODGE MD 05/27/17 Ondansetron Hcl (ONDANSETRON HCL) 4 Mg Tablet, 4 MG PO TID PRN for NAUSEA/VOMITING, #30 TAB 1 Refill Prov:MARGIE DODGE MD 01/15/17 Reported Medications Lactulose (LACTULOSE) 10 Gm/15 Ml Solution, 15-30 ML PO TID 07/05/18 Albuterol Sulfate (PROVENTIL HFA) Unknown Strength Inh, 1-2 PUFF INH PRN, INH 05/28/16 Past Medical/Surgical History Pmhx: purpura, MRSA r kne[place], Pancytopenia, sepsis, cirrhosis, hepatic encephalopathy Hx Smoking: No Smoking Status: Never Smoker Hx Substance Use Disorder: No Hx Alcohol Use: No Constitutional Vital Sign - Last 24 Hours 11/13/18 11/13/18 11/13/18 11/13/18 08:24 08:29 08:29 08:39 Temp 97.9 Pulse ??? 83 83 Resp 16 B/P (MAP) 128/74 128/74 (92) Pulse Ox 94 95 O2 Delivery Room Air 11/13/18 11/13/18 11/13/18 11/13/18 08:54 09:00 09:09 09:24 Pulse 82 76 75 B/P (MAP) 122/57 (78) Pulse Ox 93 92 93 11/13/18 11/13/18 11/13/18 11/13/18 09:30 09:39 09:54 10:03 Pulse 74 ??? B/P (MAP) 122/65 (84) 108/66 (80) Pulse Ox 93 11/13/18 11/13/18 11/13/18 4/4/19 10:09 10:24 10:29 10:30 Pulse 72 75 74 B/P (MAP) 123/69 (87) Pulse Ox 95 95 11/13/18 11/13/18 11/13/18 11/13/18 10:44 10:59 11:00 11:14 Pulse 77 74 81 B/P (MAP) 118/67 (84) Pulse Ox 96 94 95 11/13/18 11/13/18 11/13/18 11/13/18 11:29 11:30 11:44 11:59 Pulse 74 73 ??? B/P (MAP) 114/77 (89) Pulse Ox 94 95 94 11/13/18 12:00 B/P (MAP) 104/92 (96) Physical Exam General Appearance: The patient is alert, has no immediate need for airway protection and no current signs of toxicity. Musculoskeletal: Neck: Neck is supple and non tender. Extremities have full range of motion and are non tender. Skin: Patient with erythema to her surface of the right lower extremity. The area of erythema was marked with a pen and dated. No obvious areas of fluctuance. There are multiple areas of skin break. There is bilateral but right greater than left lower extremity edema. Medical Decision Making Data Points Result Diagram: 11/13/1892611/13/18926 Laboratory Hematology Test 11/13/18 09:27 Red Blood Count 4.03 M/uL (4.00-5.60) Mean Corpuscular Volume 97.0 fL (80.0-96.0) Mean Corpuscular Hemoglobin 32.3 pg (26.0-33.0) Mean Corpuscular Hemoglobin Concent 33.3 g/dL (32.0-36.0) Red Cell Distribution Width 15.6 % (11.5-14.5) Mean Platelet Volume 8.2 fL (7.2-11.1) Neutrophils (%) (Auto) 65.1 % (39.4-72.5) Lymphocytes (%) (Auto) 20.6 % (17.6-49.6) Monocytes (%) (Auto) 8.8 % (4.1-12.4) Eosinophils (%) (Auto) 4.7 % (0.4-6.7) Basophils (%) (Auto) 0.8 % (0.3-1.4) Nucleated RBC Relative Count (auto) 0.1 /100WBC Neutrophils # (Auto) 1.4 K/uL (2.0-7.4) Lymphocytes # (Auto) 0.4 K/uL (1.3-3.6) Monocytes # (Auto) 0.2 K/uL (0.3-1.0) Eosinophils # (Auto) 0.1 K/uL (0.0-0.5) Basophils # (Auto) 0.0 K/uL (0.0-0.1) Nucleated RBC Absolute Count (auto) 0.00 K/uL Sodium Level 139 mmol/L (137-145) Potassium Level 3.8 mmol/L (3.5-5.0) Chloride Level 102 mmol/L (98-107) Carbon Dioxide Level 28 mmol/L (22-30) Blood Urea Nitrogen 13 mg/dl (9-21) Creatinine 1.10 mg/dl (0.66-1.25) Glomerular Filtration Rate Calc > 60.0 Random Glucose 116 mg/dl (75-110) Calcium Level 8.6 mg/dl (8.4-10.2) Total Bilirubin 1.7 mg/dl (0.2-1.3) Aspartate Amino Transf (AST/SGOT) 62 U/L (0-35) Alanine Aminotransferase (ALT/SGPT) 34 U/L (0-56) Alkaline Phosphatase 104 U/L (0-126) Total Protein 8.1 g/dl (6.3-8.2) Albumin 3.6 g/dl (3.5-5.0) Chemistry Test 11/13/18 09:27 White Blood Count 2.2 k/uL (4.5-11.0) Red Blood Count 4.03 M/uL (4.00-5.60) Hemoglobin 13.0 g/dL (14.0-18.0) Hematocrit 39.1 % (42.0-52.0) Mean Corpuscular Volume 97.0 fL (80.0-96.0) Mean Corpuscular Hemoglobin 32.3 pg (26.0-33.0) Mean Corpuscular Hemoglobin Concent 33.3 g/dL (32.0-36.0) Red Cell Distribution Width 15.6 % (11.5-14.5) Platelet Count 78 K/uL (150-450) Mean Platelet Volume 8.2 fL (7.2-11.1) Neutrophils (%) (Auto) 65.1 % (39.4-72.5) Lymphocytes (%) (Auto) 20.6 % (17.6-49.6) Monocytes (%) (Auto) 8.8 % (4.1-12.4) Eosinophils (%) (Auto) 4.7 % (0.4-6.7) Basophils (%) (Auto) 0.8 % (0.3-1.4) Nucleated RBC Relative Count (auto) 0.1 /100WBC Neutrophils # (Auto) 1.4 K/uL (2.0-7.4) Lymphocytes # (Auto) 0.4 K/uL (1.3-3.6) Monocytes # (Auto) 0.2 K/uL (0.3-1.0) Eosinophils # (Auto) 0.1 K/uL (0.0-0.5) Basophils # (Auto) 0.0 K/uL (0.0-0.1) Nucleated RBC Absolute Count (auto) 0.00 K/uL Glomerular Filtration Rate Calc > 60.0 Calcium Level 8.6 mg/dl (8.4-10.2) Total Bilirubin 1.7 mg/dl (0.2-1.3) Aspartate Amino Transf (AST/SGOT) 62 U/L (0-35) Alanine Aminotransferase (ALT/SGPT) 34 U/L (0-56) Alkaline Phosphatase 104 U/L (0-126) Total Protein 8.1 g/dl (6.3-8.2) Albumin 3.6 g/dl (3.5-5.0) Microbiology Microbiology Date/Time Source Procedure Growth Status 11/13/18 09:38 Blood Peripheral Draw Blood Culture - Preliminary NO GROWTH SO FAR, SET LATE. REINCUBATED Resulted 11/13/18 09:27 Blood Peripheral Draw Blood Culture - Preliminary NO GROWTH SO FAR, SET LATE. REINCUBATED Resulted ED Course/Re-evaluation ED Course 11/13/2018 9:00:46 am patient with likely cellulitis currently on doxycycline. We will draw CBC CMP blood cultures I will also start the patient on weight- based vancomycin. Decision to Disposition Date: Nov 13, 2018 Decision to Disposition Time: 11:50 Depart Departure Latest Vital Signs Vital Signs Date Time Temp Pulse Resp B/P (MAP) Pulse Ox O2 Delivery O2 Flow Rate FiO2 11/13/18 12:00 104/92 (96) 11/13/18 11:59 ??? 94 11/13/18 08:29 97.9 16 Room Air Impression: Primary Impression: Cellulitis Condition: Improved Disposition: HOME OR SELF-CARE Referrals: MARGIE DODGE MD (PCP) New Scripts Vancomycin Hcl (VANCOMYCIN HCL) 250 Mg Capsule 500 MG PO Q8H for 10 Days, #30 CAPSULE 0 Refills Prov: NATI JOHNSTON MD 11/13/18 Tramadol Hcl (TRAMADOL HCL) 50 Mg Tablet 100 MG PO Q8H PRN for PAIN, #20 TAB 0 Refills Prov: NATI JOHNSTON MD 11/13/18 Patient Instructions: Cellulitis (DC) Additional Instructions: Return to the emergency department in 24 hours for recheck of cellulitis, if you develop worsening fever, worsening or spreading redness or worsening generalized weakness return to the emergency department immediately for reevaluation. Take your antibiotics as directed. Problem Qualifiers Primary Impression: Cellulitis Site of cellulitis: extremity Site of cellulitis of extremity: lower extremity Laterality: right Qualified Codes: L03.115 - Cellulitis of right lower limb NATI JOHNSTON MD Nov 13, 2018 08:25
[2018-11-13] MEDS ORDERED: VANCOMYCIN(*) 1 GM VIAL 2 GM in NS(*) 0.9% 500 ML BAG 500 ML IVPB ONE (09:05)
[2018-11-13 09:41] LABS: PLATELET COUNT, AUTOMATED 78 K/uL (150-450)
[2018-11-13] MEDS ORDERED: traMADol 50 MG TAB PO ONE (10:35)
[2018-11-13] MEDS ORDERED: VANC250C4 PO (11:49)
[2018-11-13] MEDS ORDERED: TRAM-420 PO (11:49)
[2018-11-13 12:00] VITALS: BP 104/92
== END 2018-11-13 12:20 | disposition home or self-care (01) ==
LOC: ER 08:29
DX: L03.115 Cellulitis of right lower limb (principal)
CPT/HCPCS: 36415; 85025; 87040; 96365; 96366; 99283; J3370; J7040; 82040; 82247; 82310; 82374; 82435; 82565; 82947; 84075; 84132; 84155; 84295; 84450; 84460; 84520

== ENCOUNTER → 2018-12-18 | Outpatient (CLI) | payer OTHER ==
[2018-04-30 09:10] VITALS: BMI 37.1
[~2018-12-18] MED LIST changes: +MAGN250T5 PO; +POTA-23 PO; +VANC250C4 PO
[2018-12-18 12:22] LABS: PLATELET COUNT, AUTOMATED 66 K/uL (150-450)
== END ==
LOC: LAB 11:41
PROVIDERS: ATTEND Internal Medicine
DX: L03.90 Cellulitis, unspecified (principal); K74.60 Unspecified cirrhosis of liver
CPT/HCPCS: 36415; 82040; 82247; 82310; 82374; 82435; 82565; 82947; 83735; 84075; 84132; 84155; 84295; 84450; 84460; 84520; 85025

== ENCOUNTER → 2019-03-03 | Outpatient (CLI) | payer OTHER ==
[2018-04-30 09:10] VITALS: BMI 37.1
[~2019-03-03] MED LIST changes: -OMEP-125 PO; +OMEP-126 PO
[2019-03-03 16:27] LABS: INR 1.7
[2019-03-03 16:40] LABS: PLATELET COUNT, AUTOMATED 61 K/uL (150-450)
== END ==
LOC: LAB 15:37
PROVIDERS: ATTEND Internal Medicine
DX: I85.00 Esophageal varices without bleeding (principal); R60.9 Edema, unspecified; G89.29 Other chronic pain; D61.818 Other pancytopenia
CPT/HCPCS: 36415; 81001; 82040; 82150; 82247; 82310; 82374; 82435; 82565; 82947; 83690; 83880; 84075; 84132; 84153; 84155; 84295; 84443; 84450; 84460; 84520; 85025; 85610